=== PATIENT | female | born 1975 | race Caucasian/White ===

== ENCOUNTER 2018-10-12 16:08 | Emergency (ER) | payer OTHER, SELFPAY ==
[2018-10-12 16:15] VITALS: BP 155/96; PULSE 89; RESP 14; TEMP 36.8; O2SAT 98
--- NOTE | 2018-10-12 16:36 | W.ED.GENAD ---
Discharge Plan Disposition Patient Disposition: HOME Condition: Fair Discharge Details Chief Complaint: RespSymp Clinical Impression: Atypical chest pain, Breath shortness Primary Care Provider: Omar Richards ED Provider: Niki Rodriguez Home Meds and New Rx's Prescriptions: Continued metformin 500 mg Tablet 500 mg PO BID RF: 0 folic acid 400 mcg Tablet 0.4 mg PO DAILY RF: 0 acetaminophen [Acetaminophen Extra Strength] 500 mg Tablet 500 mg PO BID RF: 0 pantoprazole 20 mg Tablet,Delayed Release (Dr/Ec) 20 mg PO BID RF: 0 levothyroxine 75 mcg Tablet 75 mcg PO DAILY RF: 0 triamcinolone acetonide 0.025 % Cream 1 applic TOPICAL BID RF: 0 Refresh Tears 0.5 % Drops 1 drp OPHTHALMIC (EYE) 4-6XD PRNRF: 0 docusate sodium 100 mg Capsule 200 mg PO DAILY RF: 0 simethicone 125 mg Tablet,Chewable 125 mg PO BID-QID PRNRF: 0 naproxen 500 mg Tablet 500 mg PO BID RF: 0 desipramine 10 mg Tablet 10 mg PO QHS RF: 0 Discharge Instructions Instructions: Chest Pain (ED), Dyspnea (ED) Additional Instructions: Continue to encourage hydration. Stop using Thrive products, cut back on caffeine intake. Contact your primary care tomorrow to schedule follow up for this week. You will need to have heart monitor placed tomorrow, please call the respiratory department tomorrow morning to schedule time to have this put on [phone] If you develop any new/worsening symptoms please seek care urgently once again. Stand Alone Forms: Work Release Referrals: Omar Richards [Primary Care Provider] - Discharge Data Discharge Date/Time-TO BE ENTERED AT DEPARTURE: 10/12/18 20:05 Medical Decision Making Patient is a 42 year old female, accompanied by and child, presenting today with c/c of chest discomfort. Reports that she has been having chest discomfort constantly, that she describes as pressure, for the past week. No exacerbating factors, reports discomfort is constant. Does not radiate. Tried Simethicone and carbinated beverages both of which helped as she thought this was GI mediated. She reports that yesterday she noted the first episode of pain when ambulating with her daughter. Had similar episode while at rest today. Denies back pain. No nausea/vomiting. Diminished appetite but she associates this with her Thrive diet which is a highly caffinated diet with patch and pills. History of anxiety and PTSD. Has had anxiety attacks historically with associated CP. States that she has associated SOB when this occurs. SOB is while at rest typicaly but has been noted to be with exertion over the past 2 days. On exam, patient appears anxious. She has normal cardiac and respiratory exam. No calf tenderness or LE edema. Concidered ACS, she has a famililal history of early ACS with [facility] having MT at 55. She has no history of smoking, does not drink ETOH regularly. No hormone use. IS overweight and currently using a highly caffinated diet. Concidered PE but patient is PERC negative, VS without tachycardia or hypoxia. Also concidered respiratory cause. Will obtain EKG, CXR and laboratory evaluation. EKG reviewed by Dr. Fiore with no acute hemorrhage is noted. Patient is in normal sinus rhythm with a rate of 79 Repeat EKG was obtained when the patient began noting increased symptoms while at rest. This was reviewed by Dr. Fiore as well. No acute abnormality, patient remains in normal sinus rhythm with no abnormalities. Patient described feeling skips during this time. CXR reviewed by radiologist: FINDINGS: Lungs: Unremarkable. No consolidation. Pleural space: Unremarkable. No pleural effusion. No pneumothorax. Heart/Mediastinum: Unremarkable. No cardiomegaly. Bones/joints: Unremarkable. IMPRESSION: No acute findings. Labs reviewed, glucose elevated. Troponin <0.02, no electrolyte abnormalities. Discussed these findings with the patient. She had yet another episode of her heart racing and a third EKG whas obtained while patient was symptomatic. This was also reviewed by Dr. Fiore with no change noted. Discussed with the patient that she may benefit from Holter monitor, she will discuss this with her primary care further. At this point, I advised that this is likely associated with her new diet which give the patient a constant flow of caffeine through pills and pathces. Her symptoms began shortly after beginning the diet. I did research this but was unable to find any clinical studies around the diet. Anedotally however, many peope described palpitations, increased anxiety. This with the patients increased social stressors may be the source of her symptoms as she has had anxiety in the past with chest discomfort manifestations. She reports that typically her symptoms are not this long lived. Advised patient close f/u with her PCP. She will stop her diet. Encouraged rest and anxiolytic techniques. Encouraged hdyration. Discussed new/worseniging symptoms in depth and when to seek care urgently once again. All of her questions and concerns were addressed, she is in agreement with this plan. HPI General Mode of arrival: ambulatory. Date/Time Provider Initiated Documentation: 10/12/18 16:10. Limitations to Documentation: no limitations. Information obtained by: patient, family and RN notes reviewed. History of Present Illness 42 year old F presents to the emergency department with the chief complaint of shortness of breath, described as moderate, with intensity rated at 6. Quality is described as other (pressure), and is localized to the chest. Patient reports no radiation. Patient started experiencing this day(s) and it has been constant. No relieving factors improve symptom(s), Movement worsens symptoms . Patient notes chest pain and shortness of breath; denies cough, diaphoresis, fever/chills, loss of appetite, nausea/vomiting, rash, syncope and weakness. Patient did receive the following treatments prior to arrival, none Related Data Home Medications Medication Instructions Recorded Confirmed Refresh Tears 1 drp OPHTHALMIC (EYE) 4-6XD PRN 10/12/18 10/15/18 acetaminophen [Acetaminophen Extra 500 mg PO BID 10/12/18 10/15/18 Strength] desipramine 10 mg PO QHS 10/12/18 10/15/18 docusate sodium 200 mg PO DAILY 10/12/18 10/15/18 folic acid 0.4 mg PO DAILY 10/12/18 10/15/18 levothyroxine 75 mcg PO DAILY 10/12/18 10/15/18 metformin 500 mg PO BID 10/12/18 10/15/18 naproxen 500 mg PO BID 10/12/18 10/15/18 pantoprazole 20 mg PO BID 10/12/18 10/15/18 simethicone 125 mg PO BID-QID PRN 10/12/18 10/15/18 triamcinolone acetonide 1 applic TOPICAL BID 10/12/18 10/15/18 Allergies Allergy/AdvReac Type Severity Reaction Status Date / Time sumatriptan [From Imitrex] AdvReac Unverified 10/15/18 16:18 metals Allergy Uncoded 10/15/18 16:22 onions Allergy Uncoded 10/15/18 16:22 General Stated Complaint: RespSymp ARCADIO: 3 Review of Systems Constitutional Reports as per HPI, Denies chills, Denies fever(s), Denies headache(s), Denies lethargy and Denies poor appetite Eyes Denies change in vision ENT Denies dizziness and Denies headache(s) Cardiovascular Reports as per HPI, Reports chest pain (pressure), Reports chest pain at rest, Reports chest pain with activity, Denies syncope, Denies leg edema, Denies lightheadedness, Denies radiating jaw, neck or arm pain, Reports palpitations, Reports dyspnea (at rest) and Reports dyspnea on exertion Respiratory Reports as per HPI, Denies chest congestion, Denies cough, Denies pain on inspiration, Denies pain with cough, Reports dyspnea (at rest), Reports dyspnea on exertion and Denies wheezing Gastrointestinal Reports as per HPI, Denies abdominal pain, Denies diarrhea, Denies nausea and Denies vomiting Musculoskeletal Reports as per HPI, Denies back pain, Denies muscle weakness and Denies numbness Integumentary/Breasts Reports as per HPI and Denies rash Neurologic Reports as per HPI, Denies dizziness, Denies syncope, Denies headache(s) and Denies numbness Endocrine Reports palpitations Allergic/Immunologic Denies wheezing [facility] Social History Smoking/Tobacco Use Status: Never Alcohol Intake: current Alcohol Intake frequency: holidays/special occasions only Drug use: Never Substance use type: does not use Do you feel safe at home: Yes Do you feel safe in your relationship?: Yes Exam Const General: cooperative, healthy appearing, comfortable, no acute distress, well developed and anxious Nutritional Appearance: well nourished and overweight Orientation: alert, awake and oriented x3 HENMT Head: normal to inspection Ears: hearing grossly normal bilaterally Mouth: moist mucous membranes Chest Chest: normal inspection of the chest, normal palpation of entire chest wall and no crepitus Resp Effort & Inspection: normal respiratory effort, able to speak in complete sentences and no respiratory distress Auscultation: clear to auscultation bilaterally, no rales, no rhonchi and no wheezes Cardio Rate: regular rate Rhythm: regular rhythm Heart Sounds: S1 normal and S2 normal GI Inspection: normal to inspection, no edema and non-distended Palpation: soft, no hepatosplenomegaly, not firm, no guarding, not rigid and nontender Auscultation: normal bowel sounds Back/Spine/Pelvis Back: no CVA tenderness Thoracic/Lumbar Spine: thoracic and lumbar spine normal to inspection Skin General skin exam: no rashes or lesions noted Trauma: no lacerations or abrasions Neuro General: alert, awake and oriented x3 Cognition: normal cognition Speech: speech normal Gait: normal gait Extrem General: normal to inspection, normal capillary refill, no pedal edema, no calf tenderness and normal gait Psych Appearance: grossly normal and well kempt Mental Status: mental status grossly normal Speech and Movement: speech and movement normal Course Vital Signs Temperature 36.8 C 10/12/18 16:15 Pulse 89 10/12/18 16:15 Respiratory Rate 14 10/12/18 16:15 Blood Pressure 155/96 H 10/12/18 16:15 Pulse Oximetry 98 10/12/18 16:15 Temperature 36.8 C 10/12/18 16:15 Temperature Source Temporal Artery Scan 10/12/18 16:15 Pulse 89 10/12/18 16:15 Respiratory Rate 14 10/12/18 16:15 Respiratory Effort Non-Labored 10/12/18 16:19 Blood Pressure 155/96 H 10/12/18 16:15 Blood Pressure Position Sitting 10/12/18 16:15 Pulse Oximetry 98 10/12/18 16:15 Oxygen Delivery Method Room Air 10/12/18 16:15 Oxygen Flow Rate 0 10/12/18 16:15 Pain Level 6 10/12/18 16:15
[2018-10-12 16:52] LABS: Bilirubin Negative (Negative); Blood Trace-lysed (Negative); Clarity Clear; Glucose Negative (Negative); Ketones Negative (Negative); Leukocyte Esterase Negative (Negative); Nitrite Negative (Negative); Specific Gravity 1.015 (1.005-1.025); Urobilinogen 0.2 EU/dL (Up TO 0.2); pH 5.5 (5-8)
--- NOTE | 2018-10-12 16:52 | DI.RAD_ITS ---
SYMPTOM/DIAGNOSIS: SOB PA AND LATERAL CHEST: The heart is normal in size. The lungs are clear. The mediastinal structures and pleura appear intact. CONCLUSION: Normal chest.
[2018-10-12 17:02] LABS: Bacteria Rare HPF (Negative); C & S Indicated? No; Casts Negative LPF (Negative); Crystals Negative HPF (Negative); Epithelial Cells Negative HPF (Negative); Mucus Negative (Negative); Other Cells Negative (Negative); RBC 0-2 (0-2); WBC Negative HPF (0-5)
[2018-10-12 17:08] LABS: Abs Immature Grans 0.02 k/cumm (0.0-0.09); Absolute Basophil Count 0.05 k/cumm (0.0-0.2); Absolute Eosinophil Count 0.18 k/cumm (0.0-0.7); Absolute Lymphocyte Count 2.63 k/cumm (1.2-3.4); Absolute Monocyte Count 0.71 k/cumm (0.11-0.7); Absolute Neutrophil Count 5.04 k/cumm (1.2-6.7); Basophils % 0.6; Eosinophils % 2.1; HCT 40.6 % (36.0-46.0); HGB 13.7 g/dL (12.0-15.5); Immature Grans % 0.2; Lymphocytes % 30.5; Mean Corp. HGB Concentration 33.7 g/dL (32.0-36.0); Mean Corpuscular Hemoglobin 27.8 pg (27.0-33.0); Mean Corpuscular Volume 82.4 fL (80-95); Monocytes % 8.2; Neutrophils % 58.4; Platelet Count 406 x1000/uL (130-400); RBC 4.93 m/cumm (4.00-5.20); RBC Distribution Width 13.8 % (11.7-14.6); White Blood Cell Count 8.63 k/cumm (4.4-10.8)
[2018-10-12 17:27] LABS: ALT 43 U/L (12-78); AST 28 U/L (15-37); Albumin 3.9 g/dL (3.4-5.0); Alkaline Phosphatase 101 U/L (46-116); Anion Gap 9.5 mmol/L (3-11); BUN 11 mg/dL (7-18); Bilirubin, Total 0.3 mg/dL (0.2-1.0); CO2 26.5 mmol/L (21.0-32.0); CREATININE 0.84 mg/dL (0.55-1.02); Calcium 9.3 mg/dL (8.5-10.1); Chloride 101 mmol/L (98-107); Glucose 142 mg/dL (70-100); Magnesium 1.9 mg/dL (1.8-2.4); Sodium 137 mmol/L (136-145); Total Protein 8.4 g/dL (6.4-8.2)
--- NOTE | 2018-10-12 17:37 | DI.VRAD_ITS ---
EXAM: XR Chest, 2 Views EXAM DATE/TIME: 10/12/2018 4:53 PM CLINICAL HISTORY: 42 years old, female; Signs and symptoms; Shortness of breath TECHNIQUE: Imaging protocol: XR of the chest, 2 views. COMPARISON: No relevant prior studies available. FINDINGS: Lungs: Unremarkable. No consolidation. Pleural space: Unremarkable. No pleural effusion. No pneumothorax. Heart/Mediastinum: Unremarkable. No cardiomegaly. Bones/joints: Unremarkable. IMPRESSION: No acute findings. Dictated and Authenticated by: Omar Shelton MD. Ordering:WESTON Prince MD
[2018-10-12 17:42] LABS: Troponin I < 0.02 ng/mL (0.00-0.06)
[2018-10-12 17:43] VITALS: PULSE 79; RESP 26; O2SAT 97
[2018-10-12 17:46] VITALS: BP 125/91; PULSE 75; PULSE 82; O2SAT 98
[2018-10-12 17:50] VITALS: O2SAT 97
[2018-10-12 18:00] VITALS: PULSE 71; O2SAT 96
[2018-10-12] MEDS: Acetaminophen 500 MG TAB 1000 MG PO (19:40)
[2018-10-12 20:01] VITALS: BP 131/88; PULSE 83; RESP 18; TEMP 36.8; O2SAT 98
== END 2018-10-12 20:05 | disposition home or self-care (01) ==
PROVIDERS: Emergency Provider Physician Assistant; PCP Internal Medicine
DX: R07.89 Other chest pain (principal); R06.02 Shortness of breath
CPT/HCPCS: 36415; 80053; 81025; 93005; 99285; 71046; 81003; 81015; 83735; 84484; 85025; 93010

== ENCOUNTER 2018-10-15 16:03 | Emergency (ER) | payer OTHER, SELFPAY ==
[2018-10-15 16:15] VITALS: BP 128/77; PULSE 97; RESP 16; TEMP 36.6; O2SAT 95
--- NOTE | 2018-10-15 16:52 | ED.GENADUL_ITS ---
Discharge Plan Disposition Patient Disposition: HOME Condition: Stable Discharge Details Chief Complaint: SOB Clinical Impression: Exertional shortness of breath Primary Care Provider: Omar Richards ED Provider: Lizandro Bishop Home Meds and New Rx's Prescriptions: Continued metformin 500 mg Tablet 500 mg PO BID RF: 0 folic acid 400 mcg Tablet 0.4 mg PO DAILY RF: 0 acetaminophen [Acetaminophen Extra Strength] 500 mg Tablet 500 mg PO BID RF: 0 pantoprazole 20 mg Tablet,Delayed Release (Dr/Ec) 20 mg PO BID RF: 0 levothyroxine 75 mcg Tablet 75 mcg PO DAILY RF: 0 triamcinolone acetonide 0.025 % Cream 1 applic TOPICAL BID RF: 0 Refresh Tears 0.5 % Drops 1 drp OPHTHALMIC (EYE) 4-6XD PRNRF: 0 docusate sodium 100 mg Capsule 200 mg PO DAILY RF: 0 simethicone 125 mg Tablet,Chewable 125 mg PO BID-QID PRNRF: 0 naproxen 500 mg Tablet 500 mg PO BID RF: 0 desipramine 10 mg Tablet 10 mg PO QHS RF: 0 Discharge Instructions Instructions: Dyspnea (ED) Additional Instructions: Continue to take your regular medication as prescribed and follow-up with your primary care provider as arranged. Feel free to return to the emergency department for any new or significant worsening of symptoms, change in symptoms or further concerns he may have. Referrals: Omar Richards [Primary Care Provider] - (As needed for reassessment or as previously arranged) Discharge Data Discharge Date/Time-TO BE ENTERED AT DEPARTURE: 10/15/18 18:50 Medical Decision Making Patient presenting the emergency department for chief complaint of dyspnea on exertion. She states that recently while she is been at work she has noted some shortness of breath when going up and down stairs and with even slight activity. Patient was seen here couple days ago with valuation and plan to discharge home to follow-up with primary care provider. Patient followed up with primary care provider today and there was concern for possible PE so patient sent to the emergency department for further work-up. Patient states some substernal chest discomfort that is not changed, dyspnea on exertion, no pedal edema. Patient does have history of PTSD, anxiety, hypothyroidism and migraine headaches. Patient is PERC negative but given complaint I do feel that laboratory work-up is warranted. Physical exam shows no tachycardia, no respiratory distress, patient speaking in full sentences with clear lung sounds, and unremarkable examination overall. Review EKG with attending physician Dr. Noel shows normal sinus rhythm, rate of 81, no ST abnormalities, otherwise nondiagnostic. Review of labs shows negative d-dimer, unremarkable CBC and CMP, negative troponin, elevated TSH but appropriate T4. Discussed these findings with patient who again remained stable with no hypoxia no tachycardia. Patient was offered chest x-ray given that she had one at her last visit with no acute findings and patient stating no worsening symptoms she deferred this at this time which I do feel is reasonable. Patient was encouraged to need to follow the plan established by her primary care provider for further work-up and evaluation and very close return precautions were discussed. After discussion of diagnosis and plan of care patient has no further needs, questions, or concerns and states clear understanding to return to the emergency department for any worsening symptoms. HPI General Mode of arrival: ambulatory . Date/Time Provider Initiated Documentation: 10/15/18 16:03 . Limitations to Documentation: no limitations . Information obtained by: patient and RN notes reviewed . History of Present Illness 42 year old F presents to the emergency department with the chief complaint of Shortness of breath, described as moderate, with intensity rated at 7. Quality is described as aching and other (pressure), and is localized to the chest. Patient started experiencing this week(s) (1) and it has been constant. No relieving factors improve symptom(s), Other factors that worsen symptoms (activity) . Patient notes no other symptoms.. Patient did receive the following treatments prior to arrival, none Related Data Home Medications Medication Instructions Recorded Confirmed Refresh Tears 1 drp OPHTHALMIC (EYE) 4-6XD PRN 10/12/18 10/15/18 acetaminophen [Acetaminophen Extra 500 mg PO BID 10/12/18 10/15/18 Strength] desipramine 10 mg PO QHS 10/12/18 10/15/18 docusate sodium 200 mg PO DAILY 10/12/18 10/15/18 folic acid 0.4 mg PO DAILY 10/12/18 10/15/18 levothyroxine 75 mcg PO DAILY 10/12/18 10/15/18 metformin 500 mg PO BID 10/12/18 10/15/18 naproxen 500 mg PO BID 10/12/18 10/15/18 pantoprazole 20 mg PO BID 10/12/18 10/15/18 simethicone 125 mg PO BID-QID PRN 10/12/18 10/15/18 triamcinolone acetonide 1 applic TOPICAL BID 10/12/18 10/15/18 Allergies Allergy/AdvReac Type Severity Reaction Status Date / Time sumatriptan [From Imitrex] AdvReac Unverified 10/15/18 16:18 metals Allergy Uncoded 10/15/18 16:22 onions Allergy Uncoded 10/15/18 16:22 General Stated Complaint: SOB ARCADIO: 3 Review of Systems Constitutional Denies chills, Denies fever(s) and Denies malaise Cardiovascular Reports chest pain, Denies chest pain with activity, Denies irregular heart rhythm, Denies leg edema, Denies palpitations, Reports dyspnea and Reports dyspnea on exertion Respiratory Denies cough, Denies hemoptysis, Reports dyspnea, Reports dyspnea on exertion and Denies wheezing Gastrointestinal Denies abdominal pain Psychiatric Reports anxiety Endocrine Denies palpitations Allergic/Immunologic Denies wheezing PFSH Social History Smoking/Tobacco Use Status: Never Alcohol Intake: current Alcohol Intake frequency: holidays/special occasions only Drug use: Never Substance use type: does not use Do you feel safe at home: Yes Do you feel safe in your relationship?: Yes Exam Const General: cooperative, healthy appearing, comfortable, no acute distress, not diaphoretic and not ill appearing Nutritional Appearance: average body habitus Orientation: alert, awake and oriented x3 Limitations: mental status not altered Neck Neck: normal visual inspection, full ROM, trachea midline, supple and no anterior neck swelling Thyroid: thyroid normal Carotids: normal carotid upstroke and no bruits Chest Chest: normal inspection of the chest Resp Effort & Inspection: normal respiratory effort and able to speak in complete sentences Auscultation: clear to auscultation bilaterally Cardio Jugular venous pressure: no JVD Palpation: normal PMI Rate: regular rate Rhythm: regular rhythm Heart Sounds: S1 normal, S2 normal, no click, no gallops, no murmurs and no rubs Bruits: no abdominal aortic bruits and no carotid bruits Skin General skin exam: no rashes or lesions noted Course Vital Signs Temperature 36.6 C 10/15/18 16:15 Pulse 97 H 10/15/18 16:15 Respiratory Rate 16 10/15/18 16:15 Blood Pressure 128/77 10/15/18 16:15 Pulse Oximetry 95 10/15/18 16:15 Temperature 36.6 C 10/15/18 16:15 Temperature Source Skin 10/15/18 16:15 Pulse 97 H 10/15/18 16:15 Respiratory Rate 16 10/15/18 16:15 Respiratory Effort 10/15/18 16:24 Respiratory Depth Normal 10/15/18 16:24 Respiratory Pattern Normal 10/15/18 16:24 Blood Pressure 128/77 10/15/18 16:15 Blood Pressure Position Sitting 10/15/18 16:15 Pulse Oximetry 95 10/15/18 16:15 Oxygen Delivery Method Room Air 10/15/18 16:15 Oxygen Flow Rate 0 10/15/18 16:15 Pain Level 7 10/15/18 16:24
[2018-10-15 17:18] LABS: Abs Immature Grans 0.03 k/cumm (0.0-0.09); Absolute Basophil Count 0.05 k/cumm (0.0-0.2); Absolute Eosinophil Count 0.21 k/cumm (0.0-0.7); Absolute Lymphocyte Count 2.08 k/cumm (1.2-3.4); Absolute Monocyte Count 0.61 k/cumm (0.11-0.7); Basophils % 0.6; Eosinophils % 2.5; HCT 39.2 % (36.0-46.0); HGB 13.3 g/dL (12.0-15.5); Immature Grans % 0.4; Lymphocytes % 24.5; Mean Corp. HGB Concentration 33.9 g/dL (32.0-36.0); Mean Corpuscular Hemoglobin 28.2 pg (27.0-33.0); Mean Corpuscular Volume 83.1 fL (80-95); Mean Platelet Volume 8.9 fL (8.0-11.0); Monocytes % 7.2; Neutrophils % 64.8; Platelet Count 396 x1000/uL (130-400); RBC 4.72 m/cumm (4.00-5.20); RBC Distribution Width 13.6 % (11.7-14.6); White Blood Cell Count 8.48 k/cumm (4.4-10.8)
[2018-10-15 17:43] LABS: ALT 53 U/L (12-78); AST 27 U/L (15-37); Albumin 2.7 g/dL (3.4-5.0); Alkaline Phosphatase 103 U/L (46-116); Anion Gap 9.7 mmol/L (3-11); BUN 11 mg/dL (7-18); Bilirubin, Total 0.2 mg/dL (0.2-1.0); CO2 27.3 mmol/L (21.0-32.0); CREATININE 0.81 mg/dL (0.55-1.02); Calcium 8.8 mg/dL (8.5-10.1); Chloride 102 mmol/L (98-107); Glucose 139 mg/dL (70-100); Magnesium 1.9 mg/dL (1.8-2.4); NT-proBNP 33 pg/mL; Potassium 3.7 mmol/L (3.5-5.1); Sodium 139 mmol/L (136-145); Total Protein 8.2 g/dL (6.4-8.2)
[2018-10-15 17:46] LABS: Troponin I < 0.02 ng/mL (0.00-0.06)
[2018-10-15 17:50] LABS: D-Dimer 275 ng/mlFEU (<500)
[2018-10-15] MEDS: Acetaminophen 500 MG TAB (17:57)
[2018-10-15 18:09] LABS: TSH (W/Ref FT4) 6.93 uIU/mL (0.358-3.74)
[2018-10-15 18:33] LABS: FREE T4 0.79 ng/dL (0.76-1.46)
[2018-10-15 18:49] VITALS: BP 136/78; PULSE 79; RESP 16; TEMP 36.6; O2SAT 100
== END 2018-10-15 18:50 | disposition home or self-care (01) ==
PROVIDERS: Emergency Provider Nurse Practitioner Family; PCP Internal Medicine
DX: R06.09 Other forms of dyspnea (principal); R07.89 Other chest pain; F41.9 Anxiety disorder, unspecified
CPT/HCPCS: 36415; 80053; 93005; 99284; 83735; 83880; 84439; 84443; 84484; 85025; 85379; 93010

== ENCOUNTER 2020-05-31 04:51 | Outpatient (CLI) | payer OTHER, SELFPAY ==
[2020-06-02 16:37] LABS: COVID-19 RT-PCR Result NEGATIVE (Negative)
== END 2020-05-31 05:11 ==
PROVIDERS: PCP Internal Medicine; Visit Provider Internal Medicine
DX: Z20.828 Contact with and (suspected) exposure to other viral communicable diseases (principal)
CPT/HCPCS: U0003

== ENCOUNTER 2021-04-16 19:07 | Emergency (ER) | payer OTHER, SELFPAY ==
[2021-04-16 19:29] VITALS: BP 130/82; PULSE 82; RESP 16; TEMP 37.2; O2SAT 97
--- NOTE | 2021-04-16 19:39 | W.ED.GENAD ---
Discharge Plan Disposition Patient Disposition: HOME Condition: Stable Discharge Details Clinical Impression: Migraine Primary Care Provider: Omar Richards ED Provider: Uday Fiore Home Meds and New Rx's Prescriptions: Continued metformin 500 mg Tablet 1,000 mg PO BID RF: 0 folic acid 400 mcg Tablet 0.4 mg PO DAILY RF: 0 pantoprazole 20 mg Tablet,Delayed Release (Dr/Ec) 20 mg PO BID RF: 0 levothyroxine 75 mcg Tablet 100 mcg PO DAILY RF: 0 triamcinolone acetonide 0.025 % Cream 1 applic TOPICAL BID RF: 0 carboxymethylcellulose sodium [Refresh Tears] 0.5 % Drops 1 drp OPHTHALMIC (EYE) 4-6XD PRNRF: 0 docusate sodium 100 mg Capsule 200 mg PO DAILY RF: 0 simethicone 125 mg Tablet,Chewable 125 mg PO BID-QID PRNRF: 0 citalopram 40 mg Tablet 40 mg PO DAILY RF: 0 semaglutide 0.25 mg or 0.5 mg(2 mg/1.5 mL) Pen Injector 0.25 mg SUBCUT QWEEK RF: 0 Discharge Instructions Instructions: General Headache (ED) Additional Instructions: Home to rest this evening. Small, frequent sips of fluids so that you maintain good hydration. Routine care with the [facility]. Return for any acute concerns. Discharge Data Discharge Date/Time-TO BE ENTERED AT DEPARTURE: 04/16/21 21:58 Medical Decision Making <Ruthie Noel DO - Last Filed: 04/17/21 08:38> 44-year-old female with a history of diabetes and migraines presents for migraine headache since last night. Vitals within normal limits. Patient sitting in a dark room but does not appear significantly uncomfortable or toxic. No focal deficits on exam. Discussed with patient that she had a [facility] and will attempt to obtain this report. Patient states she does not want any additional work-up into this including imaging and states she would just like medication for migraine. Her history and presentation does not appear consistent with meningitis, subarachnoid hemorrhage or CVA. Will place an IV, bolus IV fluids, IV Toradol, Compazine, Benadryl, Decadron and reassess. Case endorsed to Dr. iFore to follow-up on patient response to medication and [facility] report [facility] the [facility] if able to obtain. Medical Records Medical records reviewed: Yes I reviewed the patient's medical records. <Uday Fiore MD - Last Filed: 04/16/21 21:33> Received signout from Dr. Noel. Please see her note regarding details of this presentation, exam, plan of care. I did receive and review records from the [facility] noting approximately 5 mm focus within the left subcortical frontal lobe. Stable versus comparison per report. Also note of 3 additional punctate foci within the bilateral frontal lobe of doubtful clinical significance. Following medications, patient improving. She is stable for outpatient management. HPI <Ruthie Noel DO - Last Filed: 04/17/21 08:38> General Mode of arrival: ambulatory. Date/Time Provider Initiated Documentation: 04/16/21 19:09. Limitations to Documentation: no limitations. Information obtained by: patient. HPI Narrative: Patient is a 45-year-old female with a history of migraines and diabetes presents for migraine headache since last night. She states she has had a daily headache since the age of 6 but comes and goes in intensity. He states these particular headache have been worse over the past week. He states she is followed by her doctor and neurology at the [facility]. She states her primary doctor ordered an MRI for her worsening headaches recently and states she was told there were 4 areas of focus on her brain but she states she has not yet followed up with him or her neurologist to discuss these results. She describes her headaches as intermittent, squeezing, wrapped around her head and associated with nausea, sensitivity to light. She states this is not the worst headache of her life. She states she has not taken any medication for these headaches. She states she cannot take Imitrex for her migraines as it causes whiplash . She denies any fever, cough, sore throat. Related Data Home Medications Medication Instructions Recorded Confirmed carboxymethylcellulose sodium 1 drp OPHTHALMIC (EYE) 4-6XD PRN 10/12/18 04/16/21 [Refresh Tears] docusate sodium 200 mg PO DAILY 10/12/18 04/16/21 folic acid 0.4 mg PO DAILY 10/12/18 04/16/21 levothyroxine 100 mcg PO DAILY 10/12/18 04/16/21 metformin 1,000 mg PO BID 10/12/18 04/16/21 pantoprazole 20 mg PO BID 10/12/18 04/16/21 simethicone 125 mg PO BID-QID PRN 10/12/18 04/16/21 triamcinolone acetonide 1 applic TOPICAL BID 10/12/18 04/16/21 citalopram 40 mg PO DAILY 04/16/21 04/16/21 semaglutide 0.25 mg SUBCUT QWEEK 04/16/21 04/16/21 Allergies Allergy/AdvReac Type Severity Reaction Status Date / Time sumatriptan [From Imitrex] AdvReac Unverified 04/16/21 19:32 metals Allergy Uncoded 04/16/21 19:32 onions Allergy Uncoded 04/16/21 19:32 General Stated Complaint: Headache ARCADIO: 3 Review of Systems <Ruthie Noel DO - Last Filed: 04/17/21 08:38> All systems reviewed & are unremarkable except as noted in HPI and below Constitutional Constitutional: Reports as per HPI, Denies chills, Denies fever(s) and Reports headache(s) Eyes Eyes: Denies blurry vision ENT Ears, Nose, Mouth, and Throat: Denies dizziness, Reports headache(s), Denies sore throat and Denies throat swelling Cardiovascular Cardiovascular: Denies chest pain and Denies dyspnea Respiratory Respiratory: Denies cough and Denies dyspnea Gastrointestinal Gastrointestinal: Denies abdominal pain, Denies diarrhea, Reports nausea and Denies vomiting Genitourinary Genitourinary: Denies hematuria and Denies dysuria Musculoskeletal Musculoskeletal: Denies back pain and Denies numbness Integumentary/Breasts Skin/Breast: Denies lesions and Denies rash Neurologic Neurologic: Denies dizziness, Reports headache(s), Denies localized weakness and Denies numbness Allergic/Immunologic Allergic/Immunologic: Denies throat swelling PFSH <Ruthie Noel DO - Last Filed: 04/17/21 08:38> Medical History (Updated 04/16/21 @ 20:15 by Ruthie Noel DO) Diabetes Migraine Surgical History (Updated 04/16/21 @ 20:10 by Ruthie Noel DO) H/O section History of hernia repair Hx of cholecystectomy Social History Smoking/Tobacco Use Status: Never Smoking risk assessment performed?: Yes Alcohol Intake: current Alcohol Intake frequency: holidays/special occasions only Drug use: Never Substance use type: does not use Do you feel safe at home: Yes Do you feel safe in your relationship?: Yes Exam <Ruthie Noel DO - Last Filed: 04/17/21 08:38> Const General: cooperative, healthy appearing and no acute distress Nutritional Appearance: obese morbidly obese [facility] Head: normal to inspection Ears: hearing grossly normal bilaterally and external ears normal General nose exam: external nose normal Face and sinus: normal facial exam Mouth: oral mucosae normal Eyes General: appearance normal, both eyes and all related structures Pupils: PERRL EOM: EOM intact bilaterally Neck Neck: normal visual inspection and No submandibular swelling Lymphatic: no lymphadenopathy noted Chest Chest: normal inspection of the chest and no tenderness Resp Effort & Inspection: normal respiratory effort and able to speak in complete sentences Auscultation: clear to auscultation bilaterally Cardio Rate: regular rate Rhythm: regular rhythm GI Inspection: normal to inspection and obesity Palpation: soft, not firm, not rigid and nontender Auscultation: normal bowel sounds Skin General skin exam: no rashes or lesions noted Neuro General: patient alert, patient awake, patient oriented x3, moves all extremities, no meningeal signs and no focal motor deficits Cognition: normal cognition Speech: speech normal Motor: muscle tone normal throughout and strength 5/5 throughout Sensory Exam: no sensory deficits noted Extrem General: normal to inspection, full ROM, capillary refill normal, no calf tenderness bilaterally and no edema Psych Appearance: grossly normal Mental Status: mental status grossly normal Speech and Movement: speech and movement normal Affect: normal affect Course <Ruthie Noel DO - Last Filed: 04/17/21 08:38> Vital Signs Vital signs: Vital Signs Temperature 98.9 F 04/16/21 19:29 Pulse 82 04/16/21 19:29 Respiratory Rate 16 04/16/21 19:29 Blood Pressure 130/82 04/16/21 19:29 Pulse Oximetry 97 04/16/21 19:29 Temperature 98.9 F 04/16/21 19:29 Temperature Source Temporal Artery Scan 04/16/21 19:29 Pulse 82 04/16/21 19:29 Respiratory Rate 16 04/16/21 19:29 Respiratory Effort Non-Labored 04/16/21 19:33 Blood Pressure 130/82 04/16/21 19:29 Blood Pressure Position Sitting 04/16/21 19:29 Pulse Oximetry 97 04/16/21 19:29 Oxygen Delivery Method Room Air 04/16/21 19:29 Oxygen Flow Rate 0 04/16/21 19:29 Pain Level 10 04/16/21 19:29 Sign Out <Ruthie Noel DO - Last Filed: 04/17/21 08:38> Sign Out Data: Sign Out Comment: Follow-up on response to medications for migraine and final disposition. Follow-up if able to obtain recent [facility]. Last updated by Ruthie Noel DO at 04/16/21 20:15
[2021-04-16] MEDS: Normal Saline 1,000 ML 1000 ML IV (20:33)
[2021-04-16] MEDS: diphenhydrAMINE 50 MG/ML VIAL 25 MG IVP (20:34)
[2021-04-16] MEDS: Dexamethasone 10 MG/ML VIAL IVP (20:36)
[2021-04-16] MEDS: Ketorolac 30 MG/ML VIAL IVP (20:39)
[2021-04-16] MEDS: Prochlorperazine 10 MG/2 ML VIAL IVP (20:42)
[2021-04-16 21:37] VITALS: BP 137/85; PULSE 90; RESP 16; O2SAT 96
== END 2021-04-16 21:58 | disposition home or self-care (01) ==
PROVIDERS: Emergency Provider Emergency Medicine; PCP Internal Medicine
DX: G43.909 Migraine, unspecified, not intractable, without status migrainosus (principal)
CPT/HCPCS: 81025; 96361; 96374; 96375; 99284; J0780; J1100; J1200; J1885

== ENCOUNTER → 2022-06-04 02:05 | Outpatient (CLI) | payer OTHER, SELFPAY ==
--- NOTE | 2022-06-04 | DI.RAD_ITS ---
Exam(s) XR KNEE RT 4V AP,LAT,HERNÁN,PAT EXAM: XR KNEE RT 4V AP,LAT,HERNÁN,PAT CLINICAL HISTORY: RT KNEE PAIN, M25.561, [id number]. TECHNIQUE: 2D digital imaging was performed of the right knee. Four views obtained. Merchant, AP, la teral and PA tunnel views were obtained. COMPARISON: None. FINDINGS: BONES: No acute fracture is present. No bony destructive lesion is seen. JOINTS: The knee is normally aligned. No joint effusion is seen. SOFT TISSUE: Normal. IMPRESSION: Unremarkable radiographs of the right knee. DATA REPOSITORY: RADIATION DOSE DELIVERED:
== END ==
PROVIDERS: PCP Internal Medicine; Visit Provider Obstetrics & Gynecology
DX: M25.561 Pain in right knee (principal)
CPT/HCPCS: 73564

== ENCOUNTER 2023-08-07 12:05 | Emergency (ER) | payer OTHER, SELFPAY ==
[2023-08-07] VITALS (11 sets, daily range): BP systolic 103–122; BP diastolic 50–66; PULSE 60–72; RESP 15–21; TEMP 36.6–36.7; O2SAT 92–97
--- NOTE | 2023-08-07 12:00 | RT.EKG_ITS ---
APPROVED REPORT Exam: Resting ECG Reason for Exam: palpatations Patient Location: E HR:67 bpm ECG Measurements Heart Rate 67 AXIS NE 178 P 29 QRSd 85 QRS 36 QT 418 T 12 QTc 441 Conclusion Sinus rhythm...normal P axis, V-rate 60- 99
[2023-08-07 12:33] LABS: Abs Immature Grans 0.01 10^3/uL (0.0-0.06); Absolute Basophil Count 0.07 10^3/uL (0.0-0.2); Absolute Eosinophil Count 0.14 10^3/uL (0.0-0.7); Absolute Lymphocyte Count 2.24 10^3/uL (1.2-3.4); Absolute Monocyte Count 0.61 10^3/uL (0.1-0.8); Absolute Neutrophil Count 5.31 10^3/uL (1.2-6.7); Basophils % 0.8; Eosinophils % 1.7; HCT 37.1 % (36.0-46.0); HGB 12.8 g/dL (11.2-15.7); Immature Grans % 0.1; Lymphocytes % 26.7; MCH 28.2 pg (27.0-33.0); MCHC 34.5 % (32.0-36.0); MCV 82 fL (80-95); MPV 8.6 fL (8.0-11.0); Monocytes % 7.3; Neutrophils % 63.4; Platelet Count 409 10^3/uL (130-400); RBC 4.54 10^6/uL (3.93-5.22); RDW 13.6 % (11.7-14.6); RDW-SD 40.2 fL; WBC 8.38 10^3/uL (4.4-10.8)
--- NOTE | 2023-08-07 12:45 | DI.RAD_ITS ---
Exam(s) XR PORTABLE CHEST AP EXAM: XR PORTABLE CHEST AP CLINICAL HISTORY: cough TECHNIQUE: 2D digital imaging was performed. COMPARISON: CR XR CHEST 2V PA LATERAL from 10/12/2018 FINDINGS: LUNGS: Clear. No pleural abnormality seen. HEART: Normal size. AORTA: Normal diameter. BONES: Unremarkable for age. Soft tissues: Unremarkable. IMPRESSION: No acute findings. DATA REPOSITORY: RADIATION DOSE DELIVERED:
--- NOTE | 2023-08-07 12:47 | ED.GENADUL_ITS ---
HPI General Mode of arrival: ambulatory . Date/Time Provider Initiated Documentation: 08/07/23 12:05 . Limitations to Documentation: no limitations . Information obtained by: patient . History of Present Illness 47 year old F presents to the emergency department with the chief complaint of palpitations, described as moderate, Patient started experiencing this day(s) (2) and it has been intermittent. No relieving factors improve symptom(s), No exacerbating factors reported . Patient notes cough; denies chest pain and fever/chills. Patient did receive the following treatments prior to arrival, none Related Data Home Medications Medication Instructions Recorded Confirmed carboxymethylcellulose sodium 0.5 1 drp ophthalmic (eye) 4-6XD PRN 10/12/18 04/16/21 % eye drops (Refresh Tears) docusate sodium 100 mg capsule 200 mg PO DAILY 10/12/18 04/16/21 folic acid 400 mcg tablet 0.4 mg PO DAILY 10/12/18 04/16/21 levothyroxine 75 mcg tablet 100 mcg PO DAILY 10/12/18 04/16/21 metformin 500 mg tablet 1,000 mg PO BID 10/12/18 04/16/21 pantoprazole 20 mg tablet,delayed 20 mg PO BID 10/12/18 04/16/21 release simethicone 125 mg chewable tablet 125 mg PO BID-QID PRN 10/12/18 04/16/21 triamcinolone acetonide 0.025 % 1 applic topical BID 10/12/18 04/16/21 topical cream citalopram 40 mg tablet 40 mg PO DAILY 04/16/21 04/16/21 semaglutide 0.25 mg or 0.5 mg (2 0.25 mg subcut QWEEK 04/16/21 04/16/21 mg/1.5 mL) subcutaneous pen injector Allergies Allergy/AdvReac Type Severity Reaction Status Date / Time sumatriptan [From Imitrex] AdvReac Other (See Unverified 08/07/23 12:16 Comment) metals Allergy Itching Uncoded 08/07/23 12:16 onions Allergy Nausea Uncoded 08/07/23 12:16 General Stated Complaint: Palpitatns ARCADIO: 3 Review of Systems All systems reviewed & are unremarkable except as noted in HPI and below Constitutional Constitutional: Denies chills, Denies fever(s) and Denies weakness Cardiovascular Cardiovascular: Reports chest pain and Reports dyspnea Respiratory Respiratory: Reports dyspnea Gastrointestinal Gastrointestinal: Denies abdominal pain, Denies nausea and Denies vomiting Musculoskeletal Musculoskeletal: Denies joint swelling Neurologic Neurologic: Denies weakness Psychiatric Psychiatric: Denies depression Exam Const General: no acute distress Orientation: alert HENMT Head: normal to inspection Ears: external ears normal General nose exam: external nose normal Mouth: moist mucous membranes Eyes General: appearance normal, both eyes and all related structures Neck Neck: normal visual inspection Resp Effort & Inspection: normal respiratory effort and able to speak in complete sentences Auscultation: clear to auscultation bilaterally Cardio Rate: regular rate Heart Sounds: no murmurs Skin General skin exam: no rashes or lesions noted Neuro General: patient alert and patient oriented x3 Extrem General: normal to inspection Psych Mental Status: mental status grossly normal Course Vital Signs Vital signs: Vital Signs Temperature 36.6 C 08/07/23 12:13 Pulse 72 08/07/23 12:13 Respiratory Rate 16 08/07/23 12:13 Blood Pressure 122/66 08/07/23 12:13 Pulse Oximetry 94 08/07/23 12:13 Temperature 36.6 C 08/07/23 12:13 Temperature Source Skin 08/07/23 12:13 Pulse 72 08/07/23 12:13 Respiratory Rate 16 08/07/23 12:13 Blood Pressure 122/66 08/07/23 12:13 Pulse Oximetry 94 08/07/23 12:13 Pain Level 4 08/07/23 12:13 Lab/Test Results Lab/Test Results: Laboratory Tests Range/Units 08/07/23 12:26 WBC (4.4-10.8) 10^3/uL 8.38 RBC (3.93-5.22) 10^6/uL 4.54 Hgb (11.2-15.7) g/dL 12.8 Hct (36.0-46.0) % 37.1 MCV (80-95) fL 82 MCH (27.0-33.0) pg 28.2 MCHC (32.0-36.0) % 34.5 RDW (11.7-14.6) % 13.6 Plt Count (130-400) 10^3/uL 409 H MPV (8.0-11.0) fL 8.6 Immature Gran % 0.1 Neutrophils % 63.4 Lymphocytes % 26.7 Monocytes % 7.3 Eosinophils % 1.7 Basophils % 0.8 Nucleated RBC % (0.0-0.3) % 0.0 Absolute Neutrophils (1.2-6.7) 10^3/uL 5.31 Absolute Lymphocytes (1.2-3.4) 10^3/uL 2.24 Absolute Monocytes (0.1-0.8) 10^3/uL 0.61 Absolute Eosinophils (0.0-0.7) 10^3/uL 0.14 Absolute Basophils (0.0-0.2) 10^3/uL 0.07 Medical Decision Making 47-year-old female with a history of diabetes, hyperlipidemia, who comes in with intermittent feeling like her heart is beating irregularly for the past few days. States that she feels that she has a little chest pressure, denies any radiation of pain, diaphoresis, nausea or vomiting. Has also had a dry cough for few days. Denies any upper back pain, abdominal pain. She is ambulatory on arrival conscious and alert x 4 appears in no distress. She is in sinus rhythm currently and states she is currently feels like her heart is beating irregularly. She has clear lungs, no JVD, no murmur, no unilateral leg swelling or calf tenderness. On bedside ultrasound has no pericardial effusion and appears to have normal ejection fraction with no wall motion abnormalities. 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 Given her complaint of palpitations and chest pain we will proceed with EKG troponin, D-dimer, CBC and CMP. She has no tearing back pain and pulses are equal bilaterally in the peripheral extremity so doubt dissection Labs and x-ray unremarkable, has had the symptoms intermittently for 3 days so do not feel a delta troponin would be of benefit. She is stable still in sinus rhythm, do not feel she needs to be hospitalized given lack of syncope. Advised to follow-up with her primary care this week and discuss having outpatient cardiac monitoring, return precautions given Differential Diagnosis Differential Diagnosis: Palpitations, electrolyte disorder, ACS, PE, anxiety Imaging Data Radiologic Study: Attestation: I personally reviewed and interpreted this imaging study as follows: Imaging: X-Ray Radiologist's impression: No acute findings Lab Data Lab results reviewed: Yes I reviewed the patient's lab results. ECG Data Attestation: I personally reviewed and interpreted this ECG (s) as follows: Prior ECG tracings: not available for review Interpretation: Sinus, rate of 67, [place] 178, no STEMI Quality:SDOH Health Related Social Needs: No Data to Display PFSH All Active Problems (Updated 08/07/23 @ 13:48 by Omar Floyd MD) Palpitations (Acute) Migraine (Chronic) Medical History (Updated 08/07/23 @ 13:48 by Omar Floyd MD) Migraine Diabetes Surgical History (Updated 04/16/21 @ 20:10 by Ruthie Noel DO) History of hernia repair Hx of cholecystectomy H/O section Social History Smoking/Tobacco Use Status: Never Smoking risk assessment performed?: Yes Alcohol Intake: current Alcohol Intake frequency: holidays/special occasions only Drug use: Never Substance use type: does not use Housing: house Do you feel safe at home: Yes Do you feel safe in your relationship?: Yes Discharge Plan Disposition Patient Disposition: Home Condition: Stable Discharge Details Clinical Impression: Palpitations Primary Care Provider: Omar Richards ED Provider: Omar Floyd Home Meds and New Rx's Prescriptions: Continued metformin 500 mg Tablet 1,000 mg PO BID folic acid 400 mcg Tablet 0.4 mg PO DAILY pantoprazole 20 mg Tablet,Delayed Release (Dr/Ec) 20 mg PO BID levothyroxine 75 mcg Tablet 100 mcg PO DAILY triamcinolone acetonide 0.025 % Cream 1 applic TOPICAL BID carboxymethylcellulose sodium [Refresh Tears] 0.5 % Drops 1 drp OPHTHALMIC (EYE) 4-6XD PRN docusate sodium 100 mg Capsule 200 mg PO DAILY simethicone 125 mg Tablet,Chewable 125 mg PO BID-QID PRN citalopram 40 mg Tablet 40 mg PO DAILY semaglutide 0.25 mg or 0.5 mg(2 mg/1.5 mL) Pen Injector 0.25 mg SUBCUT QWEEK Discharge Instructions Instructions: Heart Palpitations (ED) Additional Instructions: Your EKG, telemetry monitoring, lab work today did not show any concerning findings. Follow-up this week with your primary care provider If you feel more ill, have severe worsening chest pain, difficulty breathing return to the emergency department for reevaluation POCUS Exam (ED) Limited Cardiac Exam DATE OF EXAM: 08/07/23 TIME OF EXAM: 12:50 PROVIDER THAT PERFORMED THE STUDY: Omar Floyd REASON FOR EXAM: Chest pain and Other indication: palpitations VISUALIZED STRUCTURES: Left ventricle and Right ventricle VIEW OBTAINED: Parasternal long-axis and Parasternal short-axis PERTINENT FINDINGS/IMPRESSION: No apparent abnormalities; No LV dysfunction, No pericardial effusion and No RV dilation Exam complete
[2023-08-07 12:51] LABS: ALT 21 U/L (14-59); AST 12 U/L (15-37); Albumin 3.6 g/dL (3.4-5.0); Alkaline Phosphatase 97 U/L (46-116); Anion Gap 10.8 mmol/L (3-11); BUN 8 mg/dL (7-18); Bilirubin, Total 0.3 mg/dL (0.2-1.0); CO2 23.2 mmol/L (21.0-32.0); CREATININE 0.8 mg/dL (0.55-1.02); Calcium 9.2 mg/dL (8.5-10.1); Chloride 104 mmol/L (98-107); Estimated GFR 92.54 (mL/min/1.73m2); Glucose 84 mg/dL (74-106); Magnesium 1.7 mg/dL (1.8-2.4); Potassium 3.9 mmol/L (3.5-5.1); Sodium 138 mmol/L (136-145); Total Protein 7.9 g/dL (6.4-8.2); Troponin I < 50 ng/L (< or =60)
[2023-08-07 13:10] LABS: D-Dimer 407 ng/mlFEU (<500)
[2023-08-07 13:46] LABS: TSH (W/Ref FT4) 2.87 uIU/mL (0.36-3.74)
--- NOTE | 2023-08-08 07:17 | NUR.NOTE ---
Accessed chart to determine orders for EKG and to determine whether or not one needs to be cancelled. Duplicate order. Nursing Note:
== END 2023-08-07 14:02 | disposition home or self-care (01) ==
PROVIDERS: Emergency Provider Emergency Medicine; PCP Internal Medicine
DX: R00.2 Palpitations (principal); R07.9 Chest pain, unspecified; E11.9 Type 2 diabetes mellitus without complications; Z79.84 Long term (current) use of oral hypoglycemic drugs; Z79.85 Long-term (current) use of injectable non-insulin antidiabetic drugs
CPT/HCPCS: 80053; 82962; 93005; 93308; 99285; 71045; 83735; 84443; 84484; 85025; 85379; 93010; 99284

== ENCOUNTER 2024-01-06 17:41 | Emergency (ER) | payer OTHER, SELFPAY ==
[2024-01-06] VITALS (18 sets, daily range): BP systolic 126–146; BP diastolic 62–78; PULSE 76–100; RESP 9–24; TEMP 35.9; O2SAT 90–98
--- NOTE | 2024-01-06 18:00 | RT.EKG_ITS ---
APPROVED REPORT Exam: Resting ECG Reason for Exam: dizzy Patient Location: E HR:92 bpm ECG Measurements Heart Rate 92 AXIS [place] 169 P 13 QRSd 81 QRS 21 QT 356 T 11 QTc 441 Conclusion Sinus rhythm at a rate of 92 without acute ischemic change with normal intervals.
--- NOTE | 2024-01-06 18:51 | ED.GENADUL_ITS ---
Discharge Plan Disposition Patient Disposition: Home Condition: Stable Discharge Details Clinical Impression: Dizziness of unknown cause, Lactic acidosis Primary Care Provider: Omar Richards ED Provider: Guillermo Leal Home Meds and New Rx's Prescriptions: Continued verapamil 180 mg capsule,ext rel. pellets 24 hr 180 mg PO DAILY atorvastatin 20 mg tablet 20 mg PO DAILY Botox 200 unit recon soln 10 unit intradermal [id number] metformin 500 mg Tablet 1,000 mg PO BID pantoprazole 20 mg Tablet,Delayed Release (Dr/Ec) 20 mg PO BID levothyroxine 75 mcg Tablet 100 mcg PO DAILY triamcinolone acetonide 0.025 % Cream 1 applic TOPICAL BID carboxymethylcellulose sodium [Refresh Tears] 0.5 % Drops 1 drp OPHTHALMIC (EYE) 4-6XD PRN semaglutide 0.25 mg or 0.5 mg(2 mg/1.5 mL) Pen Injector 0.5 mg SUBCUT QWEEK Discharge Instructions Instructions: Dizziness, Adult ED Additional Instructions: You were seen in the emergency department for your worsening dizziness and process of [place] neurology workup, we performed a CTA of the head and neck that shows no stroke, no intracranial abnormality or bleeding, cardiac workup is negative, there is no evidence of infection on your complete blood count, your white blood cells are normal. There was a mild lactic acidosis without concern for sepsis we did perform an infection search and blood cultures as well as a tick panel pending. [facility] this for dizziness relief. He had increased lipase which can be a marker of acute pancreatitis but we did not see evidence for this on CT, this can be often cleared with a clear fluid diet for a day or 2 and bowel rest. Please continue your [facility] workup, return for emergent mental status changes, severe dizziness with gait abnormality, palpitations, near fainting, visual changes. Referrals: Omar Richards [Primary Care Provider] - HPI General Date/Time Provider Initiated Documentation: 01/06/24 18:18 . HPI Narrative: 48 year-old female presents to ED today by POV/ambulating with her family with a chief complaint of severe dizziness- has had vertigo in the past- has 3 brain growths, has MRI referral, EEG referral, and heart [facility]. Over the past couple days she has had severe dizziness, nausea, room spinning sensation, near syncope without LOC- and brain fog where she feels like she is completely out of focus, with onset starting yesterday. Quality described as room-spinning, brain fog, spacing out, no radiation to shortness of breath, chest pain, abdominal pain, vomiting, bowel/urinary changes, possibility of , slurred speech. Severity is described as severe for dizziness. Palliating factors include nothing specific. Provoking factors include nothing specific. Patient not anticoagulated. Related Data Home Medications ?Medication ?Instructions ?Recorded ?Confirmed carboxymethylcellulose sodium 0.5 1 drp ophthalmic (eye) 4-6XD PRN 10/12/18 01/06/24 % eye drops (Refresh Tears) levothyroxine 75 mcg tablet 100 mcg PO DAILY 10/12/18 01/06/24 metformin 500 mg tablet 1,000 mg PO BID 10/12/18 01/06/24 pantoprazole 20 mg tablet,delayed 20 mg PO BID 10/12/18 01/06/24 release triamcinolone acetonide 0.025 % 1 applic topical BID 10/12/18 01/06/24 topical cream semaglutide 0.25 mg or 0.5 mg (2 0.5 mg subcut QWEEK 04/16/21 01/06/24 mg/1.5 mL) subcutaneous pen injector atorvastatin 20 mg tablet 20 mg PO DAILY 01/06/24 01/06/24 onabotulinumtoxinA 200 unit 10 unit intradermal [id number] 01/06/24 01/06/24 solution for injection (Botox) verapamil 180 mg 24 hr 180 mg PO DAILY 01/06/24 01/06/24 capsule,extended release Allergies Allergy/AdvReac Type Severity Reaction Status Date / Time sumatriptan (From Imitrex) AdvReac Other (See Unverified 01/06/24 18:29 Comment) metals Allergy Itching Uncoded 01/06/24 18:29 onions Allergy Nausea Uncoded 01/06/24 18:29 General Stated Complaint: Dizzy/Sync ARCADIO: 3 Review of Systems All systems reviewed & are unremarkable except as noted in HPI and below Exam Narrative Exam Narrative: GENERAL APPEARANCE: Well-nourished, non-toxic, awake and alert, atraumatic, no acute distress. SKIN: Warm, pink, dry, intact, without rashes/lesions/ulcerations. HEAD: Normocephalic, atraumatic, normal hair distribution for gender/age. EYES: Pupils PERRLA, EOMs intact without nystagmus, normal conjunctiva, no exudates on lids/lashes. ENT: Nares patent, no circumoral cyanosis, no facial swelling NECK: Supple, trachea midline, painless cervical ROM. LUNGS/CHEST: Lungs CTA bilaterally- no rhonchi/rales/wheezes diffusely, non-la bored respirations, normal A/P diameter, symmetrical expansion, no chest wall deformity HEART (CV/PV): Regular rate and rhythm without murmur, no peripheral edema, no JVD. ABDOMEN: Soft, non-distended, no guarding, no RUQ/epigastric tenderness. MSK: Normal ROM, no swelling/deformity to bilateral UEs or LEs, moving all extremities without weakness, no cyanosis, spine midline without tenderness, no rmal curvature. NEURO: Mental Status AAOx4 - alert to person, place, time, events No facial droop, no forehead involvement, no dysmetria with cerebellar testing, HINTS exam negative for central signs Motor: No focal weakness - strength 5/5 in bilateral UEs and LEs, proximal and distal, symmetric. Sensory: sensation intact to light touch globally. Gait normal: patient ambulated without ataxia into ED room. PSYCH: euthymic, cooperative, pleasant, appropriate speech Course Vital Signs Vital signs: Vital Signs Temperature 35.9 C L 01/06/24 17:59 Pulse 100 H 01/06/24 17:59 Respiratory Rate 18 01/06/24 17:59 Blood Pressure 138/78 01/06/24 17:59 Pulse Oximetry 98 01/06/24 17:59 Temperature 35.9 C L 01/06/24 17:59 Pulse 100 H 01/06/24 17:59 Respiratory Rate 18 01/06/24 18:34 Respiratory Effort Normal, Non-Labored 01/06/24 18:34 Respiratory Depth Normal 01/06/24 18:34 Respiratory Pattern Normal 01/06/24 18:34 Blood Pressure 138/78 01/06/24 17:59 Pulse Oximetry 98 01/06/24 17:59 Oxygen Delivery Method Room Air 01/06/24 17:59 Oxygen Flow Rate 0 01/06/24 17:59 Medical Decision Making This dictation utilizes [id number] dictation software and may contain unedited grammatical errors. 48 year-old female presents to ED today by POV/ambulating with her family with a chief complaint of severe dizziness- has had vertigo in the past- has 3 brain growths, has MRI referral, EEG referral, and heart [facility]. Over the past couple days she has had severe dizziness, nausea, room spinning sensation, near syncope without LOC- and brain fog where she feels like she is completely out of focus, with onset starting yesterday. Quality described as room-spinning, brain fog, spacing out, no radiation to shortness of breath, chest pain, abdominal pain, vomiting, bowel/urinary changes, possibility of , slurred speech. Severity is described as severe for dizziness. Palliating factors include nothing specific. Provoking factors include nothing specific. Patients' medical history: Migraine, diabetes. Family and social history: No recent travel, no sick contacts, denies any EtOH use. Pertinent exam findings / vital signs include neuro intact without dysmetria, hints exam negative, benign cardiopulmonary status, nontoxic, benign abdomen without any tenderness. Differential / pathologies of concern include brain mass, complex migraine, BPPV, partial seizure disorder, tickborne illness, infection/sepsis, thyroid dysfunction, electrolyte abnormality. Diagnostic studies of: -CBC, CMP, magnesium, TSH, urinalysis, ammonia, BNP, lactate, lipase, procalcitonin, troponin I, CTA head and neck, EKG, tick and Lyme panel, blood cultures, PT/INR,, CT abdomen/pelvis with contrast. -CBC shows no leukocytosis, no anemia -Initial lactate 2.0, gave 1 L IV fluids and repeat was 2.1, concern for sepsis -Procalcitonin negative -TSH within normal limits -BNP and troponin negative- Do not suspect any cardiac etiology for dizziness -Lipase is elevated to 133, possible pancreatitis -Magnesium 1.4, will replete with IV magnesium -Ammonia negative -Tick panel pending -Blood cultures pending -CTA of the head and neck is completely normal, there are no brain masses seen, no vascular abnormality -EKG shows sinus rhythm at a rate of 92 without ischemic changes, normal axis, T wave inversion in lead III, normal intervals -CT abdomen pelvis shows no evidence of acute pancreatitis or other emergent or infectious abdominal etiologies Interventions of: -1L IVF, 2gm IV magnesium ED Course/Assessment/Plan: 48-year-old female seen for dizziness-is being worked up by [place] neurology for brain growths-has MRI referral in process as well as EEG and heart monitor, yesterday had progressive dizziness as well as brain fog, could not focus while watching a school play of her daughters. Having room spinning sensation, was given meclizine by [place] and has not trialed this medicine yet, Zofran was ineffective. I did perform a CT of the head and neck which shows no brain masses, no vascular abnormality or strokes, on lab workup she had an initial lactate of 2.0 that increased to 2.1 without any signs of infection anywhere, she did have a pancreatitis on labs but no evidence of acute pancreatitis on CT, did replete her magnesium which could be contributing to her dizziness and recommend she use [id number] supplements of this going forward, I have a tick panel pending and she was stable throughout visit and remained nontoxic and neuro intact. I counseled her on strict return criteria for any worsening especially with mental status changes but continuing with her pursuit of neurology workup as an outpatient. Findings not consistent with stroke, seizure, ACS, acute emergent abdominal pathology, hepatic encephalopathy, thyroid dysfunction, infection. Disposition of Lactic Acidosis, Dizziness of Unknown Cause. Patient verbalized understanding of the plan and return to ED criteria and engaged in shared decision making. Medical Records Medical records reviewed: Yes I reviewed the patient's medical records. Imaging Data Radiologic Study: Attestation: I personally reviewed and interpreted this imaging study as follows: Imaging: CT Scan Radiologist's impression: Exam: CTA Head Without And With Contrast, Arteriography Exam date and time: 01/06/2024 8:19 PM Age: 48 years old Clinical indication: Other: Dizziness, known brain growths; Additional info: Dizziness, known brain growths TECHNIQUE: Imaging protocol: Computed tomographic angiography of the head without and with contrast. Exam focused on the arteries. 3D rendering (Not supervised by radiologist): MIP and/or 3D reconstructed images were created by the technologist. Contrast material: 350; Contrast volume: 85 ml; Contrast route: INTRAVENOUS (IV); COMPARISON: No relevant prior studies available. FINDINGS: ANTERIOR CIRCULATION: Right internal carotid artery: Intracranial segment is patent with no significant stenosis or occlusion. No aneurysm. Right middle cerebral artery: No occlusion or significant stenosis. No aneurysm. Right anterior cerebral artery: No occlusion or significant stenosis. No aneurysm. Left internal carotid artery: Intracranial segment is patent with no significant stenosis. No aneurysm. Left middle cerebral artery: No occlusion or significant stenosis. No aneurysm. Left anterior cerebral artery: No occlusion or significant stenosis. No aneurysm. POSTERIOR CIRCULATION: Right vertebral artery: No occlusion or significant stenosis. No aneurysm. Left vertebral artery: No occlusion or significant stenosis. No aneurysm. Basilar artery: No occlusion or significant stenosis. No aneurysm. Right posterior cerebral artery: No occlusion or significant stenosis. No aneurysm. Left posterior cerebral artery: No occlusion or significant stenosis. No aneurysm. HEAD: Brain: Normal. No hemorrhage. Unremarkable white matter. No mass effect. Cerebral ventricles: Normal. No ventriculomegaly. Bones: Unremarkable. No acute fracture. Paranasal sinuses: Visualized sinuses are normal. No fluid levels. Mastoid air cells: Visualized mastoids are normal. No mastoid effusion. Soft tissues: Unremarkable. IMPRESSION: 1. No large vessel occlusion. 2. Unremarkable CT head. PROCEDURE INFORMATION: Exam: CTA Neck Without And With Contrast Exam date and time: 01/06/2024 8:19 PM Age: 48 years old Clinical indication: Other: Dizziness, known brain growths; Additional info: Dizziness, known brain growths TECHNIQUE: Imaging protocol: Computed tomographic angiography of the neck without and with contrast. Exam focused on the cervical segments of the vasculature. 3D rendering (Not supervised by radiologist): MIP and/or 3D reconstructed images were created by the technologist. Contrast material: 350; Contrast volume: 85 ml; Contrast route: INTRAVENOUS (IV); COMPARISON: CR XR PORTABLE CHEST AP 08/07/2023 1:01 PM FINDINGS: Right common carotid artery: No stenosis. No dissection or occlusion. Right internal carotid artery: No stenosis of the extracranial segment. No dissection or occlusion. Right external carotid artery: No occlusion or stenosis of the origin. Left common carotid artery: No stenosis. No dissection or occlusion. Left internal carotid artery: No stenosis of the extracranial segment. No dissection or occlusion. Left external carotid artery: No occlusion or stenosis of the origin. Right vertebral artery: No stenosis. No dissection or occlusion. Left vertebral artery: No stenosis. No dissection or occlusion. Soft tissues: Normal. No significant soft tissue swelling. Bones/joints: No acute fracture. IMPRESSION: No stenosis or occlusion. REFERENCES: NASCET CRITERIA. The degree of stenosis in the cervical segment of the internal carotid artery is based on NASCET criteria. Normal is no stenosis. Mild is less than 50% stenosis. Moderate is 50-69% stenosis. Severe is 70% to 99% stenosis. Total occlusion is no detectable patent lumen. Dictated and Authenticated by: Tru Rivera MD. Lab Data Lab results reviewed: Yes I reviewed the patient's lab results. Labs: 01/06/24 20:10 Blood Blood Culture - Pending 01/06/24 19:25 Blood Blood Culture - Pending Laboratory Tests Range/Units 01/06/24 01/06/24 01/06/24 18:25 19:10 19:25 WBC (4.4-10.8) 10^3/uL 9.26 RBC (3.93-5.22) 10^6/uL 4.78 Hgb (11.2-15.7) g/dL 13.7 Hct (36.0-46.0) % 40.4 MCV (80-95) fL 85 MCH (27.0-33.0) pg 28.7 MCHC (32.0-36.0) % 33.9 RDW (11.7-14.6) % 13.2 Plt Count (130-400) 10^3/uL 446 H MPV (8.0-11.0) fL 9.0 Immature Gran % % 0.3 Neutrophils % % 66.0 Lymphocytes % % 24.3 Monocytes % % 7.0 Eosinophils % % 1.6 Basophils % % 0.8 Nucleated RBC % (0.0-0.3) % 0.0 Absolute Neutrophils (1.2-6.7) 10^3/uL 6.11 Absolute Lymphocytes (1.2-3.4) 10^3/uL 2.25 Absolute Monocytes (0.1-0.8) 10^3/uL 0.65 Absolute Eosinophils (0.0-0.7) 10^3/uL 0.15 Absolute Basophils (0.0-0.2) 10^3/uL 0.07 VBG Lactate (0.6-1.4) mmol/L 2.0 H Sodium (136-145) mmol/L 140 Potassium (3.5-5.1) mmol/L 3.8 Chloride (98-107) mmol/L 103 Carbon Dioxide (21.0-32.0) mmol/L 27.2 Anion Gap (3-11) mmol/L 9.8 BUN (7-18) mg/dL 13 Creatinine (0.55-1.02) mg/dL 1.0 Est GFR (CKD-EPI 2020) (mL/min/1.73m2) 70.36 Glucose (74-106) mg/dL 134 H Calcium (8.5-10.1) mg/dL 9.5 Magnesium (1.8-2.4) mg/dL 1.4 L Total Bilirubin (0.2-1.0) mg/dL 0.28 AST (15-37) U/L 16 ALT (14-59) U/L 29 Alkaline Phosphatase (46-116) U/L 122 H Ammonia (11-32) umol/L 11 Troponin I (< or =60) ng/L < 50 NT-Pro-B Natriuret Pep (<300) pg/mL 25 Total Protein (6.4-8.2) g/dL 8.4 H Albumin (3.4-5.0) g/dL 3.9 Lipase (16-77) U/L 133 H Procalcitonin ng/mL < 0.1 TSH (0.36-3.74) uIU/mL 1.20 Urine Color (Yellow) Yellow Urine Clarity (Clear) Clear Urine pH (5-8) 5.5 Ur Specific Aneta (1.005-1.025) >= 1.030 H Urine Protein (Neg-Trace) mg/dL Trace Urine Ketones (Negative) mg/dL Trace H Urine Blood (Negative) Negative Urine Nitrite (Negative) Negative Urine Bilirubin (Negative) Negative Urine Urobilinogen (Up to 0.2) mg/dL 1.0 H Ur Leukocyte Esterase (Negative) Negative Urine Glucose (Negative) mg/dL Negative Quality:SDOH Health Related Social Needs: No Data to Display PFSH All Active Problems (Updated 01/06/24 @ 23:35 by TODD Larson) Lactic acidosis (Acute) Dizziness of unknown cause (Acute) Migraine (Chronic) Medical History (Updated 01/06/24 @ 23:35 by TODD Larson) Migraine Diabetes Surgical History (Updated 10/26/21 @ 20:10 by Ruthie Noel DO) History of hernia repair Hx of cholecystectomy H/O section Social History Smoking/Tobacco Use Status: Never Smoking risk assessment performed?: Yes Alcohol Intake: current Alcohol Intake frequency: holidays/special occasions only Drug use: Never Substance use type: does not use Housing: house Do you feel safe at home: Yes Do you feel safe in your relationship?: Yes
--- NOTE | 2024-01-06 19:00 | DI.CT_ITS ---
Exam(s) CT BRAIN NECK CTA EXAM: CT BRAIN NECK CTA CLINICAL HISTORY: dizziness, known brain growths. TECHNIQUE: Imaging Protocol: Axial CT angiography was performed with multi-slice acquisition and mu lti-planar and/or 3D reconstructions. CONTRAST MATERIAL: Intravenous: Omnipaque 350 Contrast volume:structured data in ml COMPARISON: No exams were available for comparison FINDINGS: CTA Neck W: Aortic arch anatomy: The aortic arch exhibits bovine configuration. Anterior circulation: Both common carotid arteries ascend with normal luminal diameters. At the level the carotid bulbs and proximal internal carotid arteries there is no evidence of signifi cant atherosclerotic plaque. No significant narrowing. No dissection. Posterior circulation: Both vertebral arteries originate in conventional fashion off of the subclavian arteries and there is no obvious stenosis at the origin of the vertebral arteries. Both vertebral arteries exhibit normal luminal diameters within the foramen transversarium. Both vertebral arteries contribute to the formation of the basilar artery at the skull base. CTA Brain W: Anterior circulation: Both internal carotid arteries are patent in the skull base-carotid canals as well as within the cave rnous sinuses. The supraclinoid aspects of the ICAs are patent. Both A1 segments are patent as are the anterior cer ebral arteries and there is no evidence of aneurysm at the level of the anterior communicating artery . Both middle cerebral arteries are patent with no evidence of significant stenosis nor intraluminal th rombus. There also no aneurysms of these vessels. Posterior circulation: The basilar artery ascends in the midline. Distally it gives off patent bilateral superior cerebella r arteries. Above this level the basilar artery terminates as patent left posterior cerebral artery. The right p osterior cerebral artery is fed by posterior communicating artery on the right side of the campo-of- Naqvi. There is no evidence of aneurysm at the tip of the basilar artery nor elsewhere in the [id number] is. CT BRAIN: There is no evidence of intracranial hemorrhage, mass effect, or shift of midline structures. There are no extra-axial fluid collections. Ventricles are not enlarged or shifted. There are no ring enh ancing lesions in the brain and no abnormal meningeal enhancement. IMPRESSION: 1. Patent carotid arteries in the neck. No hemodynamically significant stenosis. 2. Patent vertebral arteries. 3. Patent intracranial arteries. No aneurysms. 4. No ring enhancing lesions in the brain. No abnormal meningeal enhancement. No intracranial hemor rhage. RADIATION DOSE DELIVERED: Total DLP DATA REPOSITORY: All CT scans at this facility are submitted to the National Radiology Data Registry (NRDR) Dose Index Registry (DIR) with the [employer] (A[employer]). RADIATION OPTIMIZATION: All CT scans at this facility use at least one of these dose optimization te chniques: automated exposure control; mA and/or kV adjustment per patient size (includes targeted exa ms where dose is matched to clinical indication); or iterative reconstruction.
[2024-01-06 19:21] LABS: Abs Immature Grans 0.03 10^3/uL (0.0-0.06); Absolute Basophil Count 0.07 10^3/uL (0.0-0.2); Absolute Eosinophil Count 0.15 10^3/uL (0.0-0.7); Absolute Lymphocyte Count 2.25 10^3/uL (1.2-3.4); Absolute Monocyte Count 0.65 10^3/uL (0.1-0.8); Absolute Neutrophil Count 6.11 10^3/uL (1.2-6.7); Basophils % 0.8 %; Eosinophils % 1.6 %; HCT 40.4 % (36.0-46.0); HGB 13.7 g/dL (11.2-15.7); Immature Grans % 0.3 %; Lymphocytes % 24.3 %; MCH 28.7 pg (27.0-33.0); MCHC 33.9 % (32.0-36.0); MCV 85 fL (80-95); Platelet Count 446 10^3/uL (130-400); RBC 4.78 10^6/uL (3.93-5.22); RDW 13.2 % (11.7-14.6); RDW-SD 40.6 fL; WBC 9.26 10^3/uL (4.4-10.8)
[2024-01-06 19:31] LABS: Bilirubin Negative (Negative); Blood Negative (Negative); Clarity Clear (Clear); Glucose Negative (Negative); Ketones Trace mg/dL (Negative); Leukocyte Esterase Negative (Negative); Nitrite Negative (Negative); Specific Gravity >= 1.030 (1.005-1.025); pH 5.5 (5-8)
[2024-01-06 19:38] LABS: ALT 29 U/L (14-59); AST 16 U/L (15-37); Albumin 3.9 g/dL (3.4-5.0); Alkaline Phosphatase 122 U/L (46-116); Anion Gap 9.8 mmol/L (3-11); BUN 13 mg/dL (7-18); Bilirubin, Total 0.28 mg/dL (0.2-1.0); CO2 27.2 mmol/L (21.0-32.0); Calcium 9.5 mg/dL (8.5-10.1); Chloride 103 mmol/L (98-107); Estimated GFR 70.36 (mL/min/1.73m2); Glucose 134 mg/dL (74-106); Lipase 133 U/L (16-77); Magnesium 1.4 mg/dL (1.8-2.4); NT-proBNP 25 pg/mL (<300); Potassium 3.8 mmol/L (3.5-5.1); Sodium 140 mmol/L (136-145); Total Protein 8.4 g/dL (6.4-8.2); Troponin I < 50 ng/L (< or =60)
[2024-01-06 19:44] LABS: Ammonia 11 umol/L (11-32)
[2024-01-06 20:12] LABS: Procalcitonin < 0.1 ng/mL
[2024-01-06] MEDS: Normal Saline - Diluent 50 ML VIAL IJ ×2 (20:23→22:58)
[2024-01-06] MEDS: Omnipaque 350 MG/ML 100 ML BTL IJ ×2 (20:23→22:58)
[2024-01-06] MEDS: MAGNESIUM SULFATE 2 GM/50 ML BAG IVINF (20:54)
[2024-01-06] MEDS: Normal Saline 1,000 ML 1000 ML IV (20:55)
--- NOTE | 2024-01-06 21:23 | DI.VRAD_ITS ---
PROCEDURE INFORMATION: Exam: CTA Head Without And With Contrast, Arteriography Exam date and time: 01/06/2024 8:19 PM Age: 48 years old Clinical indication: Other: Dizziness, known brain growths; Additional info: Dizziness, known brain growths TECHNIQUE: Imaging protocol: Computed tomographic angiography of the head without and with contrast. Exam focused on the arteries. 3D rendering (Not supervised by radiologist): MIP and/or 3D reconstructed images were created by the technologist. Contrast material: 350; Contrast volume: 85 ml; Contrast route: INTRAVENOUS (IV); COMPARISON: No relevant prior studies available. FINDINGS: ANTERIOR CIRCULATION: Right internal carotid artery: Intracranial segment is patent with no significant stenosis or occlusion. No aneurysm. Right middle cerebral artery: No occlusion or significant stenosis. No aneurysm. Right anterior cerebral artery: No occlusion or significant stenosis. No aneurysm. Left internal carotid artery: Intracranial segment is patent with no significant stenosis. No aneurysm. Left middle cerebral artery: No occlusion or significant stenosis. No aneurysm. Left anterior cerebral artery: No occlusion or significant stenosis. No aneurysm. POSTERIOR CIRCULATION: Right vertebral artery: No occlusion or significant stenosis. No aneurysm. Left vertebral artery: No occlusion or significant stenosis. No aneurysm. Basilar artery: No occlusion or significant stenosis. No aneurysm. Right posterior cerebral artery: No occlusion or significant stenosis. No aneurysm. Left posterior cerebral artery: No occlusion or significant stenosis. No aneurysm. HEAD: Brain: Normal. No hemorrhage. Unremarkable white matter. No mass effect. Cerebral ventricles: Normal. No ventriculomegaly. Bones: Unremarkable. No acute fracture. Paranasal sinuses: Visualized sinuses are normal. No fluid levels. Mastoid air cells: Visualized mastoids are normal. No mastoid effusion. Soft tissues: Unremarkable. IMPRESSION: 1. No large vessel occlusion. 2. Unremarkable CT head. PROCEDURE INFORMATION: Exam: CTA Neck Without And With Contrast Exam date and time: 01/06/2024 8:19 PM Age: 48 years old Clinical indication: Other: Dizziness, known brain growths; Additional info: Dizziness, known brain growths TECHNIQUE: Imaging protocol: Computed tomographic angiography of the neck without and with contrast. Exam focused on the cervical segments of the vasculature. 3D rendering (Not supervised by radiologist): MIP and/or 3D reconstructed images were created by the technologist. Contrast material: 350; Contrast volume: 85 ml; Contrast route: INTRAVENOUS (IV); COMPARISON: CR XR PORTABLE CHEST AP 08/07/2023 1:01 PM FINDINGS: Right common carotid artery: No stenosis. No dissection or occlusion. Right internal carotid artery: No stenosis of the extracranial segment. No dissection or occlusion. Right external carotid artery: No occlusion or stenosis of the origin. Left common carotid artery: No stenosis. No dissection or occlusion. Left internal carotid artery: No stenosis of the extracranial segment. No dissection or occlusion. Left external carotid artery: No occlusion or stenosis of the origin. Right vertebral artery: No stenosis. No dissection or occlusion. Left vertebral artery: No stenosis. No dissection or occlusion. Soft tissues: Normal. No significant soft tissue swelling. Bones/joints: No acute fracture. IMPRESSION: No stenosis or occlusion. REFERENCES: NASCET CRITERIA. The degree of stenosis in the cervical segment of the internal carotid artery is based on NASCET criteria. Normal is no stenosis. Mild is less than 50% stenosis. Moderate is 50-69% stenosis. Severe is 70% to 99% stenosis. Total occlusion is no detectable patent lumen. Dictated and Authenticated by: Tru Rivera MD. Ordering:SONI Li MD
--- NOTE | 2024-01-06 22:15 | DI.CT_ITS ---
Exam(s) CT ABDOMEN PELVIS W EXAM: CT ABDOMEN PELVIS W CLINICAL HISTORY: pancreatitis, persistent elev lactate. TECHNIQUE: Imaging Protocol: Axial computed tomography images with coronal and sagittal reformatted images were created and reviewed CONTRAST MATERIAL: Intravenous: Omnipaque-350 100cc Oral: None COMPARISON: No exams were available for comparison FINDINGS: VISUALIZED LUNG BASES: No nodules nor pleural effusions evident. ABDOMEN: There is no ascites. LIVER: Liver size is slightly prominent. Liver is hypodense implying steatosis. There no discrete f ocal hepatic lesions nor dilated intrahepatic ducts. GALLBLADDER/BILIARY: Gallbladder is surgically absent. CBD is not dilated. PANCREAS: Pancreas appears unremarkable with no evidence of mass nor dilated pancreatic duct and ther e is no evidence of obvious pancreatitis. No pancreatic calcifications. SPLEEN: Spleen is not enlarged. No obvious intrasplenic lesions. Splenic and portal veins are paten t. ADRENALS: There are no significant adrenal masses. KIDNEYS:No cysts evident. No solid renal masses. No calculi nor hydronephrosis.. ABDOMINAL AORTA: Abdominal aorta is not enlarged. Retroaortic left renal vein noted, variant seen in approximately 5 percent of the general population LYMPH NODES:There is no retroperitoneal nor paraaortic adenopathy. ABDOMINAL WALL: No evidence of significant anterior abdominal wall nor inguinal hernia. GI: There is no evidence of bowel obstruction, free air, nor abscess. PELVIS: GI: No evidence of appendicitis.No evidence of sigmoid diverticulitis. LYMPH NODES: There is no intrapelvic nor inguinal adenopathy. REPRODUCTIVE: Uterus size normal. There is an IUD in satisfactory position within the endometrial ca nal. There are no abnormal adnexal masses. No free fluid in the pelvis. URINARY BLADDER: No calculi nor obvious masses evident. Pelvic ureters are not dilated. OSSEOUS: No fractures and no significant osseous lesions. IMPRESSION: 1. No CT evidence of pancreatitis, as per request. 2. Gallbladder surgically absent. The biliary tree is not dilated. 3. There is an IUD noted in the uterus. RADIATION DOSE DELIVERED: Total DLP DATA REPOSITORY: All CT scans at this facility are submitted to the National Radiology Data Registry (NRDR) Dose Index Registry (DIR) with the [employer] (ACR). RADIATION OPTIMIZATION: All CT scans at this facility use at least one of these dose optimization te chniques: automated exposure control; mA and/or kV adjustment per patient size (includes targeted exa ms where dose is matched to clinical indication); or iterative reconstruction.
[2024-01-06 22:22] LABS: Lactate 2.1 mmol/L (0.6-1.4)
--- NOTE | 2024-01-06 23:28 | DI.VRAD_ITS ---
PROCEDURE INFORMATION: Exam: CT Abdomen And Pelvis With Contrast Exam date and time: 01/06/2024 10:55 PM Age: 48 years old Clinical indication: Abnormal findings; Abnormal lab test; Other: Persistent elev lactate; Additional info: Pancreatitis, persistent elev lactate TECHNIQUE: Imaging protocol: Computed tomography of the abdomen and pelvis with contrast. Contrast material: OMNI 360; Contrast volume: 100 ml; Contrast route: INTRAVENOUS (IV); COMPARISON: CR XR PORTABLE CHEST AP 08/07/2023 1:01 PM FINDINGS: Liver: Hepatomegaly and diffuse fatty infiltrationNo mass. Gallbladder and biliary ducts: Prior cholecystectomy. No ductal dilation. Pancreas: Normal. No ductal dilation. Spleen: Normal. No splenomegaly. Adrenal glands: Normal. No mass. Kidneys and ureters: Normal. No hydronephrosis. A retroaortic left renal vein is noted, a normal variant. Stomach and bowel: Unremarkable. No obstruction. No mucosal thickening. Appendix: No evidence of appendicitis. Intraperitoneal space: Unremarkable. No free air. No significant fluid collection. Vasculature: Unremarkable. No abdominal aortic aneurysm. Lymph nodes: Unremarkable. No enlarged lymph nodes. Urinary bladder: Unremarkable as visualized. Reproductive: Intrauterine device in the uterus. Bones/joints: Unremarkable. No acute fracture. Soft tissues: Unremarkable. IMPRESSION: No CT evidence for acute pancreatitis Nonurgent findings as noted Dictated and Authenticated by: Tru Rivera MD. Ordering:SONI Li MD
[2024-01-06 23:31] LABS: Prothrombin Time 10.3 sec (9.1-11.1)
[2024-01-08 13:16] LABS: Lyme Ab w Rflx to Lyme Confirm Negative (Negative)
[2024-01-10 09:46] LABS: Anaplasma phagocytophilum Negative (Negative); B. miyamotoi PCR Negative (Negative); Babesia divergens/MO-1 Negative (Negative); Babesia duncani Negative (Negative); Babesia microti Negative (Negative); Ehrlichia chaffeensis Negative (Negative); Ehrlichia ewingii/canis Negative (Negative); Ehrlichia muris eauclairensis Negative (Negative)
== END 2024-01-06 23:49 | disposition home or self-care (01) ==
PROVIDERS: Emergency Provider Physician Assistant; PCP Internal Medicine
DX: R42 Dizziness and giddiness (principal); E87.20 Acidosis, unspecified; R11.0 Nausea
CPT/HCPCS: 36415; 36416; 70496; 70498; 80053; 82962; 83690; 84145; 87040; 87798; 93005; 96365; 99285; 74177; 81003; 82140; 83605; 83735; 83880; 84443; 84484; 85025; 85610; 86618; 93010; 99283; J3475; J3490

== ENCOUNTER → 2024-01-22 00:07 | Outpatient (CLI) | payer OTHER, SELFPAY ==
--- NOTE | 2024-01-22 | DI.MRI_ITS ---
Exam(s) MR BRAIN WO EXAM: MR BRAIN WO CLINICAL HISTORY: ALTERED MENTAL STATUS,R41.82,? SEIZURE,[id number] TECHNIQUE: Multiplanar multisequence MRI of the brain was performed. COMPARISON: CT CT BRAIN NECK CTA from 01/06/2024 FINDINGS: VENTRICLES AND EXTRA AXIAL SPACES: Normal in size and morphology for the patient's age. MIDLINE SHIFT: None. CEREBRAL PARENCHYMA: No focus of restricted diffusion to suggest acute infarct. No space-occupying le joni identified. No abnormal high signal lesions in the white matter. HEMORRHAGE: None. BRAINSTEM/CEREBELLUM: Normal. VISUALIZED PARANASAL SINUSES/MASTOIDS:Clear. Vasculature: Normal flow void. PITUITARY GLAND: Unremarkable. ORBITS: Unremarkable. IMPRESSION: Unremarkable MRI of the brain. DATA REPOSITORY:
== END ==
PROVIDERS: PCP Internal Medicine; Visit Provider Internal Medicine
DX: R41.82 Altered mental status, unspecified (principal)
CPT/HCPCS: 70551

== ENCOUNTER 2024-01-28 13:47 | Emergency (ER) | payer OTHER, SELFPAY ==
[2024-01-28] VITALS (14 sets, daily range): BP systolic 110–143; BP diastolic 66–85; PULSE 78–91; RESP 15–21; TEMP 36.9–37.4; O2SAT 93–98
--- NOTE | 2024-01-28 13:45 | RT.EKG_ITS ---
APPROVED REPORT Exam: Resting ECG Reason for Exam: dizziness Patient Location: E HR:74 bpm ECG Measurements Heart Rate 74 AXIS NJ 169 P 13 QRSd 83 QRS 58 QT 369 T 30 QTc 416 Conclusion Sinus rhythm Normal axis, no interval abnormality No STEMI
--- NOTE | 2024-01-28 14:10 | ED.GENADUL_ITS ---
Discharge Plan Disposition Patient Disposition: Home Condition: Stable Discharge Details Clinical Impression: Dizziness of unknown cause, Migraine, Hypomagnesemia Primary Care Provider: Omar Richards ED Provider: Carla Blood Home Meds and New Rx's Prescriptions: No Action verapamil 180 mg capsule,ext rel. pellets 24 hr 180 mg PO DAILY atorvastatin 20 mg tablet 20 mg PO DAILY Botox 200 unit recon soln 10 unit intradermal [id number] metformin 500 mg Tablet 1,000 mg PO BID pantoprazole 20 mg Tablet,Delayed Release (Dr/Ec) 20 mg PO BID levothyroxine 75 mcg Tablet 100 mcg PO DAILY triamcinolone acetonide 0.025 % Cream 1 applic TOPICAL BID carboxymethylcellulose sodium [Refresh Tears] 0.5 % Drops 1 drp OPHTHALMIC (EYE) 4-6XD PRN semaglutide 0.25 mg or 0.5 mg(2 mg/1.5 mL) Pen Injector 0.5 mg SUBCUT QWEEK Discharge Instructions Instructions: Vertigo ED Additional Instructions: You were seen in the emergency department today for evaluation of dizziness and nausea. In our department A full physical examination performed, had laboratory studies that were largely reassuring, though your magnesium level is still slightly low and you received intravenous magnesium during this visit. You had a CT scan that did not show any abnormalities in your brain or blood vessels to account for your symptoms today. You received medications to manage your symptoms and can continue to take your home migraine medicines, Zofran for nausea, and your meclizine if it is helpful. I did give you a short course of Valium as this helped your symptoms here in the emergency department today, but you should avoid mixing this medication with alcohol or other sedating medications, and should not take this medication before driving or operating machinery as it can cause sleepiness. Please keep all appointments with your neurologist for ongoing workup of this condition, and you should return to the emergency department if you have a sudden or severe headache, changes in vision, weakness, numbness, or any other symptoms that cause you concern. Thank you for allowing us to be part of your care. HPI General Mode of arrival: ambulatory . Date/Time Provider Initiated Documentation: 01/28/24 13:50 . Limitations to Documentation: no limitations . Information obtained by: patient and family . HPI Narrative: MDM: In brief, this is a 48-year-old female patient presenting for evaluation of vertigo, nausea without vomiting. She has been experiencing the symptoms for approximately 1 month, and has undergone previous workup to include CT/CTA and MRI without contrast of her brain without acute findings to explain her symptoms. My differential includes but is not limited to peripheral vertigo symptoms, including M?ni?re's disease, labyrinth-itis, the lack of reproducibility and the prolonged duration is less consistent with BPPV. I certainly considered central vertiginous symptoms, including vestibular migraines. Reassuringly, the patient had an MRI 6 days ago that did not show any acute stroke, mass effect, or other significant abnormalities to account for her symptoms. The patient does not have any visual changes to suggest IIH, does not have any focal neurodeficits to significantly increase my concern for acute stroke or intracranial hemorrhage, nor take hormonal medications to increase her risk for dural venous sinus thrombosis, though this certainly is an etiology that has not been radiographically excluded. She had no evidence of vascular abnormality such as narrowing, dissection, or aneurysm on her previous studies. I considered metabolic and electrolyte derangements, anemia, kidney injury. The patient has no fever or nuchal rigidity to increase my concern for meningitis. Overall, I am reassured by the patient's hemodynamic stability and her intact neuro evaluation, and will provide her with meclizine and Zofran for initial management of symptoms. Will obtain laboratory studies to include CBC, CMP, magnesium, and hCG. After shared decision-making conversation with the patient regarding next steps and imaging, we will proceed with CTV of the head to evaluate for acute changes as well as dural venous sinus thrombosis. ED Course: I reviewed the patient's laboratory studies, which are most notable for mild hypomagnesemia to 1.5, up from 1.4 at her prior visit. The patient has been repleted her magnesium orally, will provide 2 g of intravenous repletion here in the emergency department. The remainder of her labs show no leukocytosis, anemia, thrombocytopenia, or other significant electrolyte derangements, evidence of kidney or liver dysfunction to account for her symptoms. Beta hCG negative. I independently reviewed and interpreted the CT head, and reviewed the radiology report, and the patient has no evidence of intracranial hemorrhage, mass effect, dural venous sinus thrombosis, or other abnormality to account for her symptoms. On reassessment, she remains without focal neuro deficit, states that her nausea is resolved after the Zofran, but her dizziness was exacerbated by lying in the CT scanner. We did attempt a dose of Valium for symptomatic management. Reports that the magnesium seems to improve her symptoms, and feels slightly be tter with the Valium. For this reason I prescribed a course of 7 oral Valium, 5 mg, every 8 hours as needed for breakthrough symptom management. Unfortunately, I was unable to E prescribe this medication, and so a paper prescription was handed to the patient with her discharge paperwork to fill at her convenience. Given the lack of diagnostic clarity, I recommended that the patient keep her scheduled EEG and follow-up neurology appointment to discuss her ongoing symptoms. She has access to Zofran, magnesium, and meclizine in the outpatient environment. At this time, the patient has had a full medical evaluation and is safe for discharge to home. They are hemodynamically stable, ambulatory, and tolerating PO. They are understanding of the follow-up plan and return precautions. They left our facility without incident. 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 Of note, the patient has had numerous episodes of vertiginous symptoms over the last month, for which she has not been evaluated several times. Over the course of the last month, her workup has included CTA head and neck that were without acute findings, MRI without that did not show any abnormalities, and laboratory studies that revealed hypomagnesemia which she is repleted orally. The patient had an incidental note of a mildly elevated lipase with no CT evidence for pancreatitis nor abdominal pain, vomiting, or other acute abdominal complaints. The patient reports that this episode of vertigo started on Thursday. Her dizziness is worse when she lays down, is sometimes exacerbated by looking sharply to the side, though this is unable to be reproduced on today's physical examination. She often feels nauseated but has not had vomiting. She has not had fevers or chills, trauma, changes in vision, or sensation of weakness or numbness in her body. She has not tried any medications in the home environment for management of the symptoms. She is not experiencing headache, states that she takes her daily migraine prevention medications without changes in her dosing. Exam: Gen: awake and alert, in no apparent distress. Appears well nourished. HEENT: PERRL, EOMs full and without nystagmus. External ears and nose normal, mucous membranes moist. Neck: Supple, full range of motion, no observable masses Lungs: No increased work of breathing CV: Heart with regular rate and rhythm Abdomen: Soft, nondistended, non-tended to palpation. No rigidity, rebound tenderness, or guarding. MSK: Full ROM without limitation, no external traumatic findings. Skin: No rashes or lesions to visualized skin. Normal color, warm, and dry. Neuro: Cranial nerves II-XII intact and symmetrical bilaterally. (Reduction in forehead wrinkling due to the patient's historical Botox treatments for migraine). 5/5 strength in all muscle groups x4 extremities, subjective sensation of weakness with flexion of the right thigh/hip. No sensory deficits. Ambulates with steady gait. Accurate targeting with [id number] and xjcx-bx-ucah testing Psych: Appropriate for situation. Related Data Home Medications ?Medication ?Instructions ?Recorded ?Confirmed carboxymethylcellulose sodium 0.5 1 drp ophthalmic (eye) 4-6XD PRN 10/12/18 01/28/24 % eye drops (Refresh Tears) levothyroxine 75 mcg tablet 100 mcg PO DAILY 10/12/18 01/28/24 metformin 500 mg tablet 1,000 mg PO BID 10/12/18 01/28/24 pantoprazole 20 mg tablet,delayed 20 mg PO BID 10/12/18 01/28/24 release triamcinolone acetonide 0.025 % 1 applic topical BID 10/12/18 01/28/24 topical cream semaglutide 0.25 mg or 0.5 mg (2 0.5 mg subcut QWEEK 04/16/21 01/28/24 mg/1.5 mL) subcutaneous pen injector atorvastatin 20 mg tablet 20 mg PO DAILY 01/06/24 01/28/24 onabotulinumtoxinA 200 unit 10 unit intradermal [id number] 01/06/24 01/28/24 solution for injection (Botox) verapamil 180 mg 24 hr 180 mg PO DAILY 01/06/24 01/28/24 capsule,extended release Allergies Allergy/AdvReac Type Severity Reaction Status Date / Time sumatriptan (From Imitrex) AdvReac Other (See Unverified 01/28/24 13:56 Comment) metals Allergy Itching Uncoded 01/28/24 13:56 onions Allergy Nausea Uncoded 01/28/24 13:56 General Stated Complaint: Dizzy/Sync ARCADIO: 4 Course Vital Signs Vital signs: Vital Signs Temperature 36.9 C 01/28/24 13:50 Pulse 78 01/28/24 13:50 Respiratory Rate 16 01/28/24 13:50 Blood Pressure 143/85 H 01/28/24 13:50 Temperature 36.9 C 01/28/24 13:50 Temperature Source Temporal Artery Scan 01/28/24 13:50 Pulse 78 01/28/24 13:50 Respiratory Rate 21 01/28/24 13:58 Respiratory Effort Normal, Non-Labored 01/28/24 14:01 Blood Pressure 143/85 H 01/28/24 13:50 Pain Level 0 01/28/24 13:50 Medical Decision Making Quality:SDOH Health Related Social Needs: No Data to Display PFSH All Active Problems (Updated 01/28/24 @ 15:54 by Carla Blood MD) Hypomagnesemia (Acute) Lactic acidosis (Acute) Dizziness of unknown cause (Acute) Migraine (Chronic) Medical History (Updated 01/28/24 @ 15:54 by Carla Blood MD) Migraine Diabetes Surgical History (Updated 04/16/21 @ 20:10 by Ruthie Noel DO) History of hernia repair Hx of cholecystectomy H/O section Social History Smoking/Tobacco Use Status: Never Smoking risk assessment performed?: Yes Alcohol Intake: current Alcohol Intake frequency: holidays/special occasions only Drug use: Never Substance use type: does not use Housing: house Do you feel safe at home: Yes Do you feel safe in your relationship?: Yes
--- NOTE | 2024-01-28 14:17 | DI.CT_ITS ---
Exam(s) CT HEAD WO/W EXAM: CT HEAD WO/W CLINICAL HISTORY: Vertigo, eval dural venous sinus thrombosis. TECHNIQUE: Imaging Protocol: Axial computed tomography images with coronal and sagittal reformatted images were created and reviewed. CONTRAST MATERIAL: Intravenous: Omnipaque 350 Contrast volume:100 ml COMPARISON: CT CT BRAIN NECK CTA from 01/06/2024 MR MR BRAIN WO from 01/22/2024 FINDINGS: Ventricles and Extra axial spaces: Normal in size and morphology for the patient's age. Hemorrhage: None. Cerebral parenchyma: Normal. Enhancement: No suspicious enhancement. No evidence dural venous sinus thrombosis. Dotgkn-gx-Pmipg s vasculature and branch vessels appears normal. Midline shift: None. Brainstem/Cerebellum: Normal. Calvarium: Normal. Visualized Paranasal sinuses/Mastoids: Clear. IMPRESSION: Normal CT scan of the head. No evidence of venous sinus thrombosis. RADIATION DOSE DELIVERED: Total DLP DATA REPOSITORY: All CT scans at this facility are submitted to the National Radiology Data Registry (NRDR) Dose Index Registry (DIR) with the [employer] (ACR). RADIATION OPTIMIZATION: All CT scans at this facility use at least one of these dose optimization te chniques: automated exposure control; mA and/or kV adjustment per patient size (includes targeted exa ms where dose is matched to clinical indication); or iterative reconstruction.
[2024-01-28 14:19] LABS: Abs Immature Grans 0.02 10^3/uL (0.0-0.06); Absolute Basophil Count 0.08 10^3/uL (0.0-0.2); Absolute Eosinophil Count 0.26 10^3/uL (0.0-0.7); Absolute Lymphocyte Count 2.28 10^3/uL (1.2-3.4); Absolute Monocyte Count 0.61 10^3/uL (0.1-0.8); Absolute Neutrophil Count 5.21 10^3/uL (1.2-6.7); Basophils % 0.9 %; Eosinophils % 3.1 %; HCT 40.9 % (36.0-46.0); HGB 13.6 g/dL (11.2-15.7); Immature Grans % 0.2 %; MCH 28.2 pg (27.0-33.0); MCHC 33.3 % (32.0-36.0); MCV 85 fL (80-95); MPV 8.5 fL (8.0-11.0); Monocytes % 7.2 %; Neutrophils % 61.6 %; Platelet Count 442 10^3/uL (130-400); RBC 4.82 10^6/uL (3.93-5.22); RDW 13.1 % (11.7-14.6); RDW-SD 40.2 fL; WBC 8.46 10^3/uL (4.4-10.8)
[2024-01-28] MEDS: Ondansetron 4 MG/2 ML VIAL IVP (14:22)
[2024-01-28] MEDS: Meclizine 25 MG TAB PO (14:22)
[2024-01-28] MEDS: Normal Saline Flush 10 ML SYR IVP ×2 (14:23→15:37)
[2024-01-28 14:34] LABS: ALT 37 U/L (14-59); AST 21 U/L (15-37); Albumin 3.8 g/dL (3.4-5.0); Alkaline Phosphatase 118 U/L (46-116); Anion Gap 10.3 mmol/L (3-11); BUN 9 mg/dL (7-18); Bilirubin, Total 0.31 mg/dL (0.2-1.0); CO2 27.7 mmol/L (21.0-32.0); CREATININE 0.8 mg/dL (0.55-1.02); Calcium 9.6 mg/dL (8.5-10.1); Chloride 101 mmol/L (98-107); Estimated GFR 91.97 (mL/min/1.73m2); Glucose 128 mg/dL (74-106); Magnesium 1.5 mg/dL (1.8-2.4); Potassium 3.9 mmol/L (3.5-5.1); Sodium 139 mmol/L (136-145); Total Protein 8.2 g/dL (6.4-8.2)
[2024-01-28] MEDS: MAGNESIUM SULFATE 2 GM/50 ML BAG IVINF (14:44)
[2024-01-28 14:52] LABS: HCG Qual (Serum) Negative
[2024-01-28] MEDS: diazePAM 10 MG/2 ML SYR 2 MG IVP (15:32)
[2024-01-28] MEDS: Normal Saline - Diluent 50 ML VIAL IJ (15:48)
[2024-01-28] MEDS: Omnipaque 350 MG/ML 100 ML BTL IJ (15:49)
== END 2024-01-28 16:53 | disposition home or self-care (01) ==
PROVIDERS: Emergency Provider Emergency Medicine; PCP Internal Medicine
DX: R42 Dizziness and giddiness (principal); G43.909 Migraine, unspecified, not intractable, without status migrainosus; E11.9 Type 2 diabetes mellitus without complications; E83.42 Hypomagnesemia; Z79.4 Long term (current) use of insulin; Z79.85 Long-term (current) use of injectable non-insulin antidiabetic drugs
CPT/HCPCS: 36415; 80053; 93005; 96365; 96366; 96375; 99285; 70470; 83735; 84703; 85025; 93010; 99284; J2405; J3360; J3475; J3490

== ENCOUNTER 2024-02-27 16:37 | Emergency (ER) | payer OTHER, SELFPAY ==
[2024-02-27 16:46] VITALS: BP 117/74; PULSE 95; RESP 16; TEMP 36.7; O2SAT 96
--- NOTE | 2024-02-27 17:00 | DI.RAD_ITS ---
Exam(s) XR KNEE LT 3V AP,LAT,HERNÁN EXAM: XR KNEE LT 3V AP,LAT,HERNÁN CLINICAL HISTORY: L knee pain. TECHNIQUE: 2D digital imaging was performed of the left knee. Three images were obtained. AP, late ral and PA tunnel views were obtained. COMPARISON: CR XR KNEE RT 4V AP,LAT,HERNÁN,PAT from 06/04/2022 FINDINGS: BONES: No acute fracture is present. No bony destructive lesion is seen. There is an enthesophyte at the superior patella. JOINTS: The knee is normally aligned. No joint effusion is seen. No loose body. SOFT TISSUE: Normal. IMPRESSION: No acute abnormality. DATA REPOSITORY: RADIATION DOSE DELIVERED:
--- NOTE | 2024-02-27 18:27 | ED.GENADUL_ITS ---
Discharge Plan Disposition Patient Disposition: Home Condition: Stable Discharge Details Clinical Impression: Left knee pain Primary Care Provider: [facility],[place] ED Provider: Guillermo Leal Home Meds and New Rx's Prescriptions: Continued verapamil 180 mg capsule,ext rel. pellets 24 hr 180 mg PO DAILY atorvastatin 20 mg tablet 20 mg PO DAILY Botox 200 unit recon soln 10 unit intradermal [id number] metformin 500 mg Tablet 1,000 mg PO BID pantoprazole 20 mg Tablet,Delayed Release (Dr/Ec) 20 mg PO BID levothyroxine 75 mcg Tablet 100 mcg PO DAILY triamcinolone acetonide 0.025 % Cream 1 applic TOPICAL BID carboxymethylcellulose sodium [Refresh Tears] 0.5 % Drops 1 drp OPHTHALMIC (EYE) 4-6XD PRN semaglutide 0.25 mg or 0.5 mg(2 mg/1.5 mL) Pen Injector 0.5 mg SUBCUT QWEEK Discharge Instructions Instructions: Knee Pain ED Additional Instructions: You were seen in the emergency department for intermittent left knee instability and pain, you have pain in the area of the suprapatellar bursa and I suspect 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 There is no fracture or knee effusion seen and you have no ligamentous laxity on exam. Please follow-up with outpatient orthopedic visits whether this from the [place] or our orthopedic office please talk to your primary care provider. Please use a neoprene knee cuff, rest, ice, compress and elevate the knee often for any intermittent pains, use [id number] analgesics like Tylenol and ibuprofen for adequate pain relief. Please return for any unilateral leg swelling, redness and warmth to touch to the knee, complete numbness distal, inability to ambulate. Referrals: [facility] [Provider Group] [place], [place] [Primary Care Provider] - Discharge Data Discharge Date/Time-TO BE ENTERED AT DEPARTURE: 02/27/24 19:06 HPI General Date/Time Provider Initiated Documentation: 02/27/24 17:02 . HPI Narrative: 48 year-old female presents to ED today by POV/ambulating with her daughter with a chief complaint of L knee instability, occasional pains with onset around February 09 from normal ambulation, felt a sudden instability. Quality described as occasional pain to the suprapatellar area, no radiation to inability to ambulate, persistent complete instability or buckling, skin changes, unilateral leg swelling, hip pain, ankle pain. Severity is described as moderate. Palliating factors include intermittent OTC analgesics. Provoking factors include nothing specific. Patient not anticoagulated. Related Data Home Medications ?Medication ?Instructions ?Recorded ?Confirmed carboxymethylcellulose sodium 0.5 1 drp ophthalmic (eye) 4-6XD PRN 10/12/18 02/27/24 % eye drops (Refresh Tears) levothyroxine 75 mcg tablet 100 mcg PO DAILY 10/12/18 02/27/24 metformin 500 mg tablet 1,000 mg PO BID 10/12/18 02/27/24 pantoprazole 20 mg tablet,delayed 20 mg PO BID 10/12/18 02/27/24 release triamcinolone acetonide 0.025 % 1 applic topical BID 10/12/18 02/27/24 topical cream semaglutide 0.25 mg or 0.5 mg (2 0.5 mg subcut QWEEK 04/16/21 02/27/24 mg/1.5 mL) subcutaneous pen injector atorvastatin 20 mg tablet 20 mg PO DAILY 01/06/24 02/27/24 onabotulinumtoxinA 200 unit 10 unit intradermal [id number] 01/06/24 02/27/24 solution for injection (Botox) verapamil 180 mg 24 hr 180 mg PO DAILY 01/06/24 02/27/24 capsule,extended release Allergies Allergy/AdvReac Type Severity Reaction Status Date / Time sumatriptan (From Imitrex) AdvReac Other (See Unverified 02/27/24 16:50 Comment) metals Allergy Itching Uncoded 02/27/24 16:50 onions Allergy Nausea Uncoded 02/27/24 16:50 General Stated Complaint: Orthopedic ARCADIO: 4 Review of Systems All systems reviewed & are unremarkable except as noted in HPI and below Exam Narrative Exam Narrative: GENERAL APPEARANCE: Well-nourished, non-toxic, awake and alert, atraumatic, no acute distress. SKIN: Warm, pink, dry, intact, without rashes/lesions/ulcerations. HEAD: Normocephalic, atraumatic, normal hair distribution for gender/age. EYES: Normal conjunctiva, no exudates on lids/lashes. ENT: Nares patent, no circumoral cyanosis, no facial swelling NECK: Supple, trachea midline, painless cervical ROM. LUNGS/CHEST: Non-labored respirations, normal A/P diameter, symmetrical expansion, no chest wall deformity HEART (CV/PV): Regular rate, no peripheral edema, no JVD. ABDOMEN: Soft, non-distended, no guarding. MSK: Normal ROM, no swelling/deformity to bilateral UEs or LEs, moving all extremities without weakness, no cyanosis, spine midline without tenderness, normal curvature. L KNEE: Mild tenderness around the suprapatellar area, patella mobile, no crepitus, no ligamentous laxity with varus valgus forces or anterior drawer/Gilbert, Mohit negative, no unilateral leg swelling, no skin changes distally, Homans negative, neurovascular intact distal NEURO: Mental Status AAOx4 - alert to person, place, time, events No facial droop, no forehead involvement. Motor: No focal weakness - strength 5/5 in bilateral UEs and LEs, proximal and distal, symmetric. Sensory: sensation intact to light touch globally. Gait normal: patient ambulated without ataxia into ED room. PSYCH: euthymic, cooperative, pleasant, appropriate speech Course Vital Signs Vital signs: Vital Signs Temperature 36.7 C 02/27/24 16:46 Pulse 95 H 02/27/24 16:46 Respiratory Rate 16 02/27/24 16:46 Blood Pressure 117/74 02/27/24 16:46 Pulse Oximetry 96 02/27/24 16:46 Temperature 36.7 C 02/27/24 16:46 Pulse 95 H 02/27/24 16:46 Respiratory Rate 16 02/27/24 16:46 Blood Pressure 117/74 02/27/24 16:46 Pulse Oximetry 96 02/27/24 16:46 Pain Level 6 02/27/24 16:46 Medical Decision Making This dictation utilizes [id number]-maow dictation software and may contain unedited grammatical errors. 48 year-old female presents to ED today by POV/ambulating with her daughter with a chief complaint of L knee instability, occasional pains with onset around February 09 from normal ambulation, felt a sudden instability. Quality described as occasional pain to the suprapatellar area, no radiation to inability to ambulate, persistent complete instability or buckling, skin changes, unilateral leg swelling, hip pain, ankle pain. Severity is described as moderate. Palli ating factors include intermittent OTC analgesics. Provoking factors include nothing specific. Patients' medical history: Diabetes, migraine. 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 Pertinent exam findings / vital signs include Mohit negative, anterior drawer without laxity, some intermittent tenderness during exam to suprapatellar area, patella mobile. Differential / pathologies of concern include arthritis, unlikely fracture, possible internal knee injury, tendinitis/bursitis. Diagnostic studies of: -XR L knee-no acute fracture or effusion. Interventions of: -Recommend outpatient orthopedic follow-up and neoprene knee bracing, daily RICE therapy and adequate dosing Tylenol and ibuprofen. ED Course/Assessment/Plan: 48-year-old female presents with intermittent knee instability and pain from a slight incident of buckling during normal ambulation on at least February 09. 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 Findings not consistent with fracture, neurovascular compromise, DVT, septic arthritis. Disposition of left knee pain. Patient verbalized understanding of the plan and return to ED criteria and engaged in shared decision making. Medical Records Medical records reviewed: Yes I reviewed the patient's medical records. Imaging Data Radiologic Study: Attestation: I personally reviewed and interpreted this imaging study as follows: Imaging: X-Ray Radiologist's impression: EXAM: XR KNEE LT 3V AP,LAT,HERNÁN CLINICAL HISTORY: L knee pain. TECHNIQUE: 2D digital imaging was performed of the left knee. Three images were obtained. AP, lateral and PA tunnel views were obtained. COMPARISON: CR XR KNEE RT 4V AP,LAT,HERNÁN,PAT from 06/04/2022 FINDINGS: BONES: No acute fracture is present. No bony destructive lesion is seen. There is an enthesophyte at the superior patella. JOINTS: The knee is normally aligned. No joint effusion is seen. No loose body. SOFT TISSUE: Normal. IMPRESSION: No acute abnormality. Quality:SDOH Health Related Social Needs: No Data to Display PFSH All Active Problems (Updated 02/28/24 @ 00:05 by ROSALIA SETH) Left knee pain (Acute) Migraine (Chronic) Medical History (Updated 02/28/24 @ 00:05 by ROSALIA SETH) Migraine Diabetes Surgical History (Updated 04/16/21 @ 20:10 by Ruthie Noel DO) History of hernia repair Hx of cholecystectomy H/O section Social History Smoking/Tobacco Use Status: Never Smoking risk assessment performed?: Yes Alcohol Intake: current Alcohol Intake frequency: holidays/special occasions only Drug use: Never Substance use type: does not use Housing: house Do you feel safe at home: Yes Do you feel safe in your relationship?: Yes
[2024-02-27 18:59] VITALS: BP 132/78; PULSE 68; RESP 16; O2SAT 98
== END 2024-02-27 19:06 | disposition home or self-care (01) ==
PROVIDERS: Emergency Provider Physician Assistant
DX: M25.562 Pain in left knee (principal)
CPT/HCPCS: 73562; 80053; 99283; 85025

== ENCOUNTER 2024-07-05 02:29 | Outpatient (CLI) | payer OTHER, SELFPAY ==
--- NOTE | 2024-07-05 | DI.MAMMO_ITS ---
Exam(s) MAMMO SCREENING EXAM: MAMMO SCREENING CLINICAL HISTORY: SCREENING MAMMO Z12.31 ANNUAL SCREENING,[id number] TECHNIQUE: Mammograms were interpreted according to the usual protocol including computer analysis w ith CAD system, tomosynthesis and C-view imaging. COMPARISON: None. FINDINGS: The breasts are composed of heterogeneously dense fibroglandular densities, Breast Density category C . No suspicious masses or suspicious microcalcifications are seen. No skin thickening or abnormal axillary lymph nodes are seen. In the left breast, there are 2 areas circumscribed nodularity, 1 located laterally on the CC view in the other located centrally on the CC view. In the right breast, there also nodule seen laterally as well medially in the posterior breast. Spot compression views and ultrasound are requested for both breasts. IMPRESSION: BI-RADS Category 0 - Incomplete: Need additional imaging evaluation Breast Density Category C, heterogeneously Dense. The mammogram demonstrates the patient's breast tissue is dense. Dense breast tissue is very common a nd is not abnormal but dense breast tissue can make it harder to find cancer on a mammogram. Also, de nse breast tissue may increase breast cancer risk. This information about the result of the mammogram report was provided to the patient to raise their awareness. Use this report when you speak with the patient about their risks for breast cancer, which includes their family history. At that time, you may recommend additional screening tests (Ultrasound or MRI) as they might be useful based on their r isk. A negative radiographic report should not delay biopsy if a dominant or clinically suspicious mass is present. Up to ten percent of cancers are not identified on mammography. A negative report may reinforce clinical impression. Adenosis and dense breasts may obscure an underlying neoplasm. False positive reports average 6 to 10%.
--- NOTE | 2025-07-07 | DI.US_ITS ---
Exam(s) US BREAST LT COMPLETE US BREAST RT COMPLETE MG MAMMO DIAGNOSTIC BI EXAM: MG MAMMO DIAGNOSTIC BI AND BILATERAL COMPLETE BREAST ULTRASOUND CLINICAL HISTORY: 6 MO F/U, F/U ABNL MAMMO, DUE FOR BILATERAL, [id number]. TECHNIQUE: BILATERAL CC AND MLO mammographic images were obtained with 3D tomosynthesis technique and utilizing computer aided detection (CAD). BILATERAL COMPLETE BREAST ULTRASOUND was performed including all 4 quadrants both breasts as well as both axillary regions. COMPARISON: Prior mammograms were reviewed, as were prior ultrasound examinations of September and November 2024. This patient was sent for breast MRI at [facility] following the last breast imaging appointment here. This was performed on 03/30/2025. This report was reviewed by myself. It is being scanned into her [facility] breast file today. FINDINGS: DIAGNOSTIC BILATERAL MAMMOGRAM: The fibroglandular tissue pattern is again noted to be heterogeneously dense. In the left breast there is again noted a lobulated noncalcified nodule inferolaterally measuring 11 by 7 mm, unchanged from the mammogram of June 2024 (there are none prior to that date). It also corresponds to finding at the 4 o'clock position on ultrasound as well as finding at 4 o'clock position on the outside breast MRI study (called a fibroadenoma). There are no malignant- appearing microcalcification groups in this region or elsewhere in either breast. In the right breast on the CC view there is again noted a lobulated noncalcified nodular density located 10 cm in from the nipple cysts, slightly medial of center, unchanged from mammogram of June 2024. Probably represents a benign intramammary lymph node given its appearance and lack of change. There are no new spiculated masses nor new malignant-appearing microcalcification groups in either breast. There is no new architectural distortion or skin thickening-retraction. BILATERAL COMPLETE BREAST ULTRASOUND: RIGHT BREAST ULTRASOUND: There are benign-appearing microcysts at the 1 o'clock and 5 o'clock positions as well as at the 10 o'clock position. At the 8 o'clock position there is a septated benign-appearing microcyst measuring 5 mm. At the 11 o'clock position there is benign-appearing hemorrhagic microcyst measuring 3-4 mm. Scanning of the right axilla is negative for significant adenopathy. LEFT BREAST ULTRASOUND: There are microcysts and conglomeration microcysts at the 12 o'clock, 1 o'clock, 2 o'clock, 8 o'clock positions. At the 4 o'clock position there is again noted the previously described wider than taller solid lobulated nodule which exhibits neutral through transmission and which corresponds to the finding on today's mammogram (and is also unchanged in size when compared to the June 2024 mammo) and which also corresponds to what is described at this position as a fibroadenoma on the recent [facility] MRI. There is no obvious finding on ultrasound to correspond to the benign appearing and unchanged nodule seen medial of center on the right breast mammogram (also unchanged from June 2024 mammogram). Scanning of the left axilla is negative for significant adenopathy. IMPRESSION: 1. Stable benign-appearing bilateral findings on mammography, unchanged from the baseline mammogram of June 2024. 2. 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 3. Appropriate follow-up, as discussed by myself with the patient today, is repeat mammogram and breast ultrasound in 6 months to ensure stability of this left breast finding at the three-four o'clock position. As I explained to the patient, we must established this as being stable for 2 years on an every six- month basis. The patient was informed of the findings and follow-up recommendations by myself prior to leaving the department today. BI-RADS Category 3 - 6 month - Probably Benign Finding: Recommend follow-up mammography in 6 months Breast Density - Category C - The breast are heterogeneously dense, which may obscure small masses. Breast density Category C or D implies that the patient has dense breast tissue. Dense breast tissue can make it harder to find cancer on a mammogram. Dense breast tissue is also associated with an increased risk of breast cancer. This information about the result of the mammogram report was provided to the patient to raise their awareness. Use this report when you speak with the patient about their risks for breast cancer, which includes their family history. At that time, you may recommend additional screening tests (Ultrasound or MRI) as these tests may add significant information. A negative radiographic report should not delay biopsy if a dominant or clinically suspicious mass is present. Up to ten percent of cancers are not identified on mammography. A negative report may reinforce clinical impression. Adenosis and dense breasts may obscure an underlying neoplasm. False positive reports average 6 to 10%. Patient will receive a letter notifying them of these results.
== END 2024-07-05 02:49 ==
PROVIDERS: Visit Provider Internal Medicine
DX: Z12.31 Encounter for screening mammogram for malignant neoplasm of breast (principal); R92.333 Mammographic heterogeneous density, bilateral breasts
CPT/HCPCS: 77063; 77067

== ENCOUNTER 2024-10-11 02:23 | Outpatient (CLI) | payer OTHER, SELFPAY ==
--- NOTE | 2024-10-11 09:40 | DI.MAMMO_ITS ---
Exam(s) US BREAST LT COMPLETE US BREAST RT COMPLETE MG MAMMO SCREEN CALL BACK BI EXAM: MG MAMMO SCREEN CALL BACK BI and bilateral breast ultrasound complete CLINICAL HISTORY: Auth:[id number] LT Breast 2 areas circumscribed Nodularity 1 Lat, 1 Cent. TECHNIQUE: Craniocaudal and mediolateral oblique Full Field Digital Mammography views of the bilater al breast with Computer Aided Diagnosis followed by Tomosynthesis and complete bilateral breast ultra sound. All 4 quadrants of both breast were evaluated sonographically. The axilla and retroareolar r egions were also interrogated sonographically. COMPARISON: Comparison is made with the patient's baseline examination. FINDINGS: Mammography/Tomosynthesis: Masses/Architectural Distortion: The nodular densities noted were less prominent on the additional vi ews. The nodule in the medial aspect of the right breast persisted. There are no areas of architectural engineering teacher ural distortion. Microcalcifictions: No suspicious pleomorphic-type are seen. Skin Thickening/Nipple Retraction: None. Bilateral complete breast US: Echotexture: Normal appearance of the glandular tissue. Shadowing: No suspicious foci. Cyst: In the right breast, there is a 0.5 x 0.3 x 0.5 cm cyst at the 8 o'clock position 10 cm from th e nipple. This would appear to correspond to the mammographic abnormality. There is a 0.5 x 0.3 x 0 .5 cm cyst at the 2 o'clock position of the right breast 8 cm from the nipple. In the left breast, t here is a 0.7 x 0.3 x 0.4 cm cyst in the retroareolar region which would appear to correspond to the mammographic abnormality. Solid lesions: In the left breast, there is a question of a 1.2 cm hypoechoic lesion at the 3 o'clock position of the left breast 8 cm from the nipple. This may be normal fibroglandular tissue. Ductal dilation: None. IMPRESSION: 1. Question of a hypoechoic lesion versus normal fibroglandular tissue at the 3 o'clock position of t he left breast 8 cm from the nipple. A repeat left breast ultrasound in 1-2 months is recommended fo r re-evaluation. Alternatively, an MRI of the breast may be obtained for further characterization. 2. Simple cysts are seen in the right breast. No follow-up is recommended. 3. The findings were discussed with the patient on the date of the examination. BI-RADS Category 0 - Incomplete: Need additional imaging evaluation Probably Benign Finding: Recommend follow-up left breast ultrasound in 1-2 months Breast Density - Category C - Heterogeneously dense Breast density Category C or D implies that the patient has dense breast tissue. Dense breast tissue can make it harder to find cancer on a mammogram. Dense breast tissue is also associated with an incr eased risk of breast cancer. This information about the result of the mammogram report was provided to the patient to raise their awareness. Use this report when you speak with the patient about their risks for breast cancer, which includes their family history. At that time, you may recommend additional screening tests (Ultrasoun d or MRI) as these tests may add significant information. A negative radiographic report should not delay biopsy if a dominant or clinically suspicious mass is present. Up to ten percent of cancers are not identified on mammography. A negative report may reinforce clinical impression. Adenosis and dense breasts may obscure an underlying neoplasm. False positive reports average 6 to 10%. Patient will receive a letter notifying them of these results.
== END 2024-10-11 02:43 ==
PROVIDERS: PCP Internal Medicine; Visit Provider Internal Medicine
DX: Z12.31 Encounter for screening mammogram for malignant neoplasm of breast (principal); R92.333 Mammographic heterogeneous density, bilateral breasts
CPT/HCPCS: 76642; 77063; 77067

== ENCOUNTER 2025-02-18 12:45 | Observation (INO) | payer OTHER, SELFPAY ==
[2025-02-18] VITALS (31 sets, daily range): BP systolic 108–138; BP diastolic 58–84; PULSE 77–117; RESP 13–25; TEMP 36.4–36.8; O2SAT 94–100
--- NOTE | 2025-02-18 12:45 | RT.EKG_ITS ---
APPROVED REPORT Exam: Resting ECG Reason for Exam: dizzy Patient Location: E HR:88 bpm ECG Measurements Heart Rate 88 AXIS MO 164 P 8 QRSd 83 QRS 17 QT 354 T 2 QTc 429 Conclusion Sinus rhythm...normal P axis, V-rate 60- 99 No Occlusion AK
--- NOTE | 2025-02-18 13:00 | W.ED.GENAD ---
Discharge Plan Disposition Patient Disposition: Admit to [facility] Discharge Details Clinical Impression: Abnormal Romberg test, Dizziness Primary Care Provider: Melani [place] ED Provider: Willie Lilly [place] Meds and New Rx's Prescriptions: No Action verapamil 180 mg capsule,ext rel. pellets 24 hr 180 mg PO DAILY atorvastatin 20 mg tablet 20 mg PO DAILY Botox 200 unit recon soln 10 unit intradermal [id number] magnesium 1 tab PO DAILY Aimovig Autoinjector 70 mg/mL auto-injector 140 mg subcut QMONTH famotidine 20 mg tablet 20 mg PO DAILY meclizine [Antivert] 25 mg tablet,chewable 25 mg PO DAILY progesterone 100 mg PO DAILY metformin 500 mg Tablet 1,000 mg PO BID pantoprazole 20 mg Tablet,Delayed Release (Dr/Ec) 20 mg PO BID levothyroxine 75 mcg Tablet 100 mcg PO DAILY triamcinolone acetonide 0.025 % Cream 1 applic TOPICAL BID carboxymethylcellulose sodium [Refresh Tears] 0.5 % Drops 1 drp OPHTHALMIC (EYE) 4-6XD PRN semaglutide 0.25 mg or 0.5 mg(2 mg/1.5 mL) Pen Injector 0.5 mg SUBCUT QWEEK HPI General Date/Time Provider Initiated Documentation: 02/18/25 13:00. HPI Narrative: MDM This is an overall very well-appearing normothermic and not tachycardic 49-year-old female with truncal ataxia concerning for possibility of acute CVA versus atypical migraine for which patient will undergo CT angiogram of her brain and neck prior to neurological consultation. No pain or proportion to suggest necrotizing soft tissue infection. In the absence of any nystagmus I did not applied the HINTS exam. No recent chiropractic manipulation to suggest increased risk for cervical arterial dissection. No tonic-clonic activity to suggest benefit to EEG. No nuchal rigidity nor fevers to suggest meningitis so no indication for lumbar puncture. In the absence of significant headache I am not suspicious for idiopathic intracranial hypertension so I did not feel patient required a lumbar puncture. Not altered to suggest encephalitis. Patient has not been vomiting nor had any recent URI symptoms so my suspicion is low for subdural empyema. She has good range of motion in her neck so I am not suspicious for retropharyngeal abscess. No rash to suggest zoster. Given her diabetes we will obtain assessment of electrolytes. No head strike nor sudden onset headache so my suspicion for subarachnoid hemorrhage is low. Patient is on hormone replacement therapy though my suspicion is low for cerebral venous sinus thrombosis in the absence of headache. Will reassess following labs and imaging to include chest x-ray though in the absence of chest pain my suspicion low for aortic dissection. 1:51 PM Urine test negative. Urinalysis nitrite leukoesterase negative. 2:20 PM CBC lacks anemia and thrombocytopenia leukocytosis. 2:30 PM Initial reassuring troponin. Basic metabolic panel showing very mild hyperglycemia but no anion gap. Normal bicarbonate?test not consistent with DKA. No RIRI. 3 PM I spoke with Dr. Almaraz from neurology. He evaluated the patient. He felt that the patient could benefit from hospitalization for symptom management versus outpatient follow-up with MRI. I advised him that we did not have MRI available until Thursday. He did not feel that the patient required tertiary care transfer as he did not feel that the patient was having an acute stroke nor with the patient be a candidate for lytics. He did not feel the patient required an EEG nor a lumbar puncture. I met with the patient. She felt improved. She had been reading on an electronic device. She had received 500 cc of crystalloid. Will attempt ambulatory trial and reassess. 3:07 PM Patient attempted to ambulate. She felt markedly unsteady with persistent dizziness for which I treated her with IV diazepam. Given her persistent unsteadiness and her need for IV medications we will await final read on her CTA head and neck and reach out to the hospitalist with request for hospitalization. 3:[address] angiogram with no large vessel occlusion or significant stenoses. Reassuring repeat troponin normal delta. 3:58 PM I was in touch w/Dr. Hale who graciously agreed to accept that patient for hospitalization. HPI This is a patient with a history of diabetes presenting with dizziness. The patient reports experiencing dizziness upon waking up at 8:30 AM this morning. She initially attributed the sensation to a dream, describing it as foggy and amalia to walking through water or concrete. Despite returning to bed to rest, her symptoms did not improve. She took meclizine, a medication prescribed about a year ago for similar symptoms. After breakfast, she attempted to brush her teeth and wash her face but found these tasks challenging due to a fear of falling. Her symptoms worsened when she visited a house they are currently cleaning and remodeling, making standing, walking, and coherent speech difficult. She reports feeling slightly better now but still experiences dizziness when moving or turning her head, particularly to the left. She has not vomited today but feels nauseous. The patient reports no trouble breathing, chest pain, stomach pain, or burning during urination. She has not recently visited a chiropractor nor been around a given no generator exposure my suspicion for carbon oxide toxicity is low. Generator. She is not on any blood thinners. The patient also mentions feeling unwell on 02/16/2025 with stomach discomfort, vomiting, and diarrhea. On 02/17/2025, she experienced cramping but no diarrhea. As a diabetic, she ate breakfast thinking she might be hungry. She is perimenopausal and has started taking progesterone. Exam General: Well-appearing in no acute distress speaking in complete sentences. Supportive daughter playing on electronic device at bedside. Head: Normocephalic, atraumatic. Eye:[Pupils equal, round reactive to light.] Extraocular eye movements intact. No conjunctival injection. No scleral icterus. Ear, nose, mouth, throat: Grossly normal inspection. Normal voice, handling secretions normally. Neck: Trachea midline. Cardiovascular: Well-perfused distal extremities. Respiratory: Nonlabored respiration. Gastrointestinal: Nondistended abdomen. Musculoskeletal: No edema. Moving all 4 extremities spontaneously. Skin: Normal for age and race, grossly normal temperature and turgor. No acute rash. Neurologic: Alert and appropriate, no apparent acute deficits. GCS 15. Cranial nerves II through XII intact grossly. No significant nystagmus. 5 out of 5 bilateral upper and lower extremity strength. No dysmetria. Patient does have positive Romberg. Psychiatric: Mood and manner are appropriate. Grooming and personal hygiene are appropriate. Related Data Home Medications ?Medication ?Instructions ?Recorded ?Confirmed carboxymethylcellulose sodium 0.5 1 drp ophthalmic (eye) 4-6XD PRN 10/12/18 02/18/25 % eye drops (Refresh Tears) levothyroxine 75 mcg tablet 100 mcg PO DAILY 10/12/18 02/18/25 metformin 500 mg tablet 1,000 mg PO BID 10/12/18 02/18/25 pantoprazole 20 mg tablet,delayed 20 mg PO BID 10/12/18 02/18/25 release triamcinolone acetonide 0.025 % 1 applic topical BID 10/12/18 02/18/25 topical cream semaglutide 0.25 mg or 0.5 mg (2 0.5 mg subcut QWEEK 04/16/21 02/18/25 mg/1.5 mL) subcutaneous pen injector atorvastatin 20 mg tablet 20 mg PO DAILY 01/06/24 02/18/25 onabotulinumtoxinA 200 unit 10 unit intradermal [id number] 01/06/24 02/18/25 solution for injection (Botox) verapamil 180 mg 24 hr 180 mg PO DAILY 01/06/24 02/18/25 capsule,extended release erenumab-aooe 70 mg/mL 140 mg subcut QMONTH 02/18/25 02/18/25 subcutaneous auto-injector (Aimovig Autoinjector) famotidine 20 mg tablet 20 mg PO DAILY 02/18/25 02/18/25 magnesium 1 tab PO DAILY 02/18/25 02/18/25 meclizine 25 mg chewable tablet 25 mg PO DAILY 02/18/25 02/18/25 (Antivert) progesterone 100 mg PO DAILY 02/18/25 02/18/25 Allergies Allergy/AdvReac Type Severity Reaction Status Date / Time sumatriptan (From Imitrex) AdvReac Other (See Verified 02/18/25 12:55 Comment) metals Allergy Itching Uncoded 02/18/25 12:55 onions Allergy Nausea Uncoded 02/18/25 12:55 General Stated Complaint: Dizzy/Sync ARCADIO: 3 Course Vital Signs Vital signs: Vital Signs Temperature 36.7 C 02/18/25 12:48 Pulse 86 02/18/25 12:48 Respiratory Rate 16 02/18/25 12:48 Blood Pressure 112/78 02/18/25 12:48 Pulse Oximetry 96 02/18/25 12:48 Temperature 36.7 C 02/18/25 12:48 Temperature Source Oral 02/18/25 12:48 Pulse 86 02/18/25 12:48 Respiratory Rate 16 02/18/25 12:48 Blood Pressure 112/78 02/18/25 12:48 Blood Pressure Position Sitting 02/18/25 12:48 Pulse Oximetry 96 02/18/25 12:48 Oxygen Delivery Method Room Air 02/18/25 12:48 Oxygen Flow Rate 0 02/18/25 12:48 Pain Level 0 02/18/25 12:48 PFSH All Active Problems (Updated 02/18/25 @ 15:08 by Willie Lilly MD) Dizziness (Acute) Abnormal Romberg test (Acute) Migraine (Chronic) Medical History Migraine Diabetes Surgical History History of hernia repair Hx of cholecystectomy H/O section Social History Smoking/Tobacco Use Status: Never Smoking risk assessment performed?: Yes Alcohol Intake: current Alcohol Intake frequency: holidays/special occasions only Drug use: Never Substance use type: does not use Housing: house Do you feel safe at home: Yes Do you feel safe in your relationship?: Yes
--- NOTE | 2025-02-18 13:37 | DI.CT_ITS ---
Exam(s) CT BRAIN NECK CTA EXAM: CT BRAIN NECK CTA CLINICAL HISTORY: Dizziness. TECHNIQUE: Imaging Protocol: Axial CT angiography was performed with multi- slice acquisition and multi-planar and/or 3D reconstructions. CONTRAST MATERIAL: Intravenous: Omnipaque 350 contrast volume:70 mL COMPARISON: CT CT BRAIN NECK CTA from 01/06/[address] HEAD WO/W from 01/28/2024 FINDINGS: CT Head W/O and W: Ventricles and Extra axial spaces: Normal in size and morphology for the patient's age. Hemorrhage: None. Cerebral parenchyma: There is a normal montoya-white matter differentiation. No evidence of an acute territorial infarct is seen. Midline shift: None. Brainstem/Cerebellum: Normal. Calvarium: Normal. Visualized Paranasal sinuses/Mastoids: Clear. Soft Tissues: Unremarkable. Enhancement: Unremarkable. CTA Neck W: Common Carotid: Right: No dissection, occlusion or significant stenosis. Left: No dissection, occlusion or significant stenosis. External Carotid: Right: No occlusion or significant stenosis. Left: No occlusion or significant stenosis. Internal Carotid: Right: No dissection, occlusion or significant stenosis. Left: No dissection, occlusion or significant stenosis. Vertebral Artery: Right: No dissection, occlusion or significant stenosis. Left: No dissection, occlusion or significant stenosis. Lung Apices: Normal. Bones: Within normal limits for the patient's age. Soft Tissues: Normal. Thyroid gland: Unremarkable. CTA Brain W: Internal Carotid Arteries: There is no evidence of an aneurysm, occlusion or significant stenosis. Anterior Cerebral Arteries: Right: No aneurysm, occlusion or significant stenosis. Left: No aneurysm, occlusion or significant stenosis. Middle Cerebral Arteries: Right: No aneurysm, occlusion or significant stenosis. Left: No aneurysm, occlusion or significant stenosis. Posterior Cerebral Arteries: Right: No aneurysm, occlusion or significant stenosis. Left: No aneurysm, occlusion or significant stenosis. Vertebral Arteries: Right: No aneurysm, occlusion or significant stenosis. Left: No aneurysm, occlusion or significant stenosis. Basilar Artery: No aneurysm, occlusion or significant stenosis. IMPRESSION: 1. No large vessel occlusion or significant stenosis on the CT angiography of the head. 2. No acute intracranial process. 3. No occlusion or significant stenosis on the CT angiography of the neck. RADIATION DOSE DELIVERED: 2,239.41mGy.cm Total DLP DATA REPOSITORY: All CT scans at this facility are submitted to the National Radiology Data Registry (NRDR) Dose Index Registry (DIR) with the [employer] (A[employer]). RADIATION OPTIMIZATION: All CT scans at this facility use at least one of these dose optimization techniques: automated exposure control; mA and/or kV adjustment per patient size (includes targeted exams where dose is matched to clinical indication); or iterative reconstruction.
[2025-02-18 13:47] LABS: Glucose Negative (Negative)
[2025-02-18] MEDS: Normal Saline 500 ML IV (13:56)
--- NOTE | 2025-02-18 13:58 | DI.RAD_ITS ---
Exam(s) XR CHEST 2V PA LATERAL EXAM: XR CHEST 2V PA LATERAL CLINICAL HISTORY: Dizziness TECHNIQUE: 2D digital imaging was performed of the chest. Two images were obtained. PA and lateral views were obtained. COMPARISON: CR XR CHEST 2V PA LATERAL from 10/12/2018 CR XR PORTABLE CHEST AP from 08/07/2023 FINDINGS: There is poor inspiration. MEDIASTINUM: Normal. HEART: Normal. PULMONARY VASCULATURE: Normal. LUNGS: Clear. PLEURAL SPACE: No pleural effusion or pneumothorax. BONE:Within normal limits for the patient's age. OTHER FINDINGS:Normal. IMPRESSION: No acute pulmonary findings. DATA REPOSITORY: RADIATION DOSE DELIVERED:
[2025-02-18 14:01] LABS: Abs Immature Grans 0.02 10^3/uL (0.0-0.06); HCT 40.5 % (36.0-46.0); HGB 13.3 g/dL (11.2-15.7); Immature Grans % 0.2 %; MCH 27.4 pg (27.0-33.0); MCHC 32.8 % (32.0-36.0); MCV 83 fL (80-95); MPV 8.7 fL (8.0-11.0); Platelet Count 441 10^3/uL (130-400); RBC 4.86 10^6/uL (3.93-5.22); RDW 13.2 % (11.7-14.6); RDW-SD 40.3 fL; WBC 8.07 10^3/uL (4.4-10.8)
[2025-02-18] MEDS: Normal Saline - Diluent 50 ML VIAL IJ (14:10)
[2025-02-18] MEDS: Omnipaque 350 MG/ML 100 ML BTL IJ (14:11)
[2025-02-18] MEDS: Normal Saline Flush 10 ML SYR IVP ×4 (14:12→21:01)
[2025-02-18 14:18] LABS: Anion Gap 8.1 mmol/L (3-11); BUN 7 mg/dL (7-18); CO2 26.9 mmol/L (21.0-32.0); Calcium 9.5 mg/dL (8.5-10.1); Chloride 105 mmol/L (98-107); Estimated GFR 91.40 (mL/min/1.73m2); Glucose 136 mg/dL (74-106); Potassium 3.8 mmol/L (3.5-5.1); Sodium 140 mmol/L (136-145); Troponin I 7 ng/L (<or=51)
[2025-02-18] MEDS: diazePAM 10 MG/2 ML SYR 5 MG IVP (15:12)
[2025-02-18 15:19] LABS: Troponin I 7 ng/L (<or=51)
--- NOTE | 2025-02-18 15:56 | W.PM.HP.N ---
Date of service: 02/18/25 Time of Service: 15:56 Assessment and Plan Assessment and plan (1) Dizziness: Status: Acute Assessment and plan: Head / Neck CTa negative Orthostatic VS in the setting of dizziness and tachycardia( HR 99-110) at rest in the ED - Slow IVF Labs in AM PT consult Meclizine (2) Migraine: Status: Chronic Assessment and plan: On monthly and trimestrial injections at home Ongoing therapy with verapamil No symptoms at this time Will continue to monitor (3) Diabetes: Assessment and plan: Gluc AC & HS with SSI coverage Metformin on hold s/p IV contrast Will resume home regimen on discharge including weekly GLP-1. (4) GERD (gastroesophageal reflux disease): Status: Chronic Assessment and plan: On PPI and H2 at home With fetor, nausea and recent vomiting - will give IV PPI BIB with ongoing oral H2 (5) Hormone replacement therapy (HRT): Status: Acute Assessment and plan: Home dose of daily progesterone in the setting of pre-menopause (6) On deep vein thrombosis (DVT) prophylaxis: Status: Acute Assessment and plan: On LMWH Dicussed with Dr. Hale History of Present Illness History of Present Illness Chief Complaint: dizziness Narrative: This 49 years old female patient with a past medical history of diabetes, migraine, vertigo presented to the ED today for evaluation of dizziness. Lab work was unremarkable and Head/ Neck CTA completed w/o actionable items or significant abnormal findings. [facility] [place] completed by ED provider with recommendation for home discharge and outpatient MRI. The patient had ongoing ambulatory dysfunction linked to her dizziness, was treated with diazepam and was admitted for observation to the hospitalist service. The patient reported difficulty with eye focus while attempting to ambulate with increased dizziness, bilateral arms with a sensation of disassociation w/o focal deficit. When seen the patient was reading on electronic device and eating her meal. Mentioned fetor followed by nausea, vomiting and diarrhea starting but resolving on Thursday, and ongoing minimal abdominal discomfort. The patient denied chills, fevers, chest pain, hematemesis, hematochezia, melena, or dysuria. full code status confirmed. Review of Systems All systems reviewed & are unremarkable except as noted in HPI and below PFSH All Active Problems (Updated 02/18/25 @ 18:19 by Addis Ron APRN) Hormone replacement therapy (HRT) (Acute) GERD (gastroesophageal reflux disease) (Chronic) On deep vein thrombosis (DVT) prophylaxis (Acute) Dizziness (Acute) Abnormal Romberg test (Acute) Migraine (Chronic) Medical History Migraine Diabetes Surgical History History of hernia repair Hx of cholecystectomy H/O section Social History Smoking/Tobacco Use Status: Never Smoking risk assessment performed?: Yes Alcohol Intake: current Alcohol Intake frequency: holidays/special occasions only Drug use: Never Substance use type: does not use Housing: house Do you feel safe at home: Yes Do you feel safe in your relationship?: Yes Meds Allergies and Home Medications Allergies Allergy/AdvReac Type Severity Reaction Status Date / Time sumatriptan (From Imitrex) AdvReac Other (See Verified 02/18/25 12:55 Comment) metals Allergy Itching Uncoded 02/18/25 12:55 onions Allergy Nausea Uncoded 02/18/25 12:55 Home Medications ?Medication ?Instructions ?Recorded ?Confirmed ?Type carboxymethylcellulose sodium 0.5 1 drp ophthalmic (eye) 4-6XD PRN 10/12/18 02/18/25 History % eye drops (Refresh Tears) levothyroxine 75 mcg tablet 100 mcg PO DAILY 10/12/18 02/18/25 History metformin 500 mg tablet 1,000 mg PO BID 10/12/18 02/18/25 History pantoprazole 20 mg tablet,delayed 20 mg PO BID 10/12/18 02/18/25 History release triamcinolone acetonide 0.025 % 1 applic topical BID 10/12/18 02/18/25 History topical cream semaglutide 0.25 mg or 0.5 mg (2 0.5 mg subcut QWEEK 04/16/21 02/18/25 History mg/1.5 mL) subcutaneous pen injector atorvastatin 20 mg tablet 20 mg PO DAILY 01/06/24 02/18/25 History onabotulinumtoxinA 200 unit 10 unit intradermal [id number] 01/06/24 02/18/25 History solution for injection (Botox) verapamil 180 mg 24 hr 180 mg PO DAILY 01/06/24 02/18/25 History capsule,extended release erenumab-aooe 70 mg/mL 140 mg subcut QMONTH 02/18/25 02/18/25 History subcutaneous auto-injector (Aimovig Autoinjector) famotidine 20 mg tablet 20 mg PO DAILY 02/18/25 02/18/25 History magnesium 1 tab PO DAILY 02/18/25 02/18/25 History meclizine 25 mg chewable tablet 25 mg PO DAILY 02/18/25 02/18/25 History (Antivert) progesterone 100 mg PO DAILY 02/18/25 02/18/25 History Exam Narrative Exam Narrative: Constitutional The patient is sitting on stretcher comfortable without acute distress and has average body habitus/is obese/ is thin. HENMT: Head is atraumatic, normocephalic. Facial structures with normal appearance/ symmetrical Eyes: Well aligned, intact ROM Neck: Normal ROM, no meningeal signs Neuro:alert and oriented X4 . No neurological focal deficit, cranial nerve II-XII intact and negative NIHs Chest:Chest is symmetrical and normal appearance Resp: Normal respiratory pattern,unlabored breathing, clear lung bilaterally Cardio: regular rhythm,HR ST 99-100 S1, S2, no murmur GI: Abdomen is not distended, soft and minimal RUQ - epigastric tenderness but negative Schafer's , bowel sounds are present : Negative Costovertebral angle tenderness, no bladder distension Psych: RASS 0, congruent mood and normal affect. Results Labs 02/18/25 13:50 02/18/25 13:50 Labs: Laboratory Results - last 24 hr 02/18/25 02/18/25 02/18/25 13:22 13:50 14:50 WBC 8.07 RBC 4.86 Hgb 13.3 Hct 40.5 MCV 83 MCH 27.4 MCHC 32.8 RDW 13.2 Plt Count 441 H MPV 8.7 Immature Gran % 0.2 Neutrophils % 63.5 Lymphocytes % 24.4 Monocytes % 6.8 Eosinophils % 4.7 Basophils % 0.4 Nucleated RBC % 0.0 Absolute Neutrophils 5.12 Absolute Lymphocytes 1.97 Absolute Monocytes 0.55 Absolute Eosinophils 0.38 Absolute Basophils 0.03 Sodium 140 Potassium 3.8 Chloride 105 Carbon Dioxide 26.9 Anion Gap 8.1 BUN 7 Creatinine 0.8 Est GFR (CKD-EPI 2020) 91.40 Glucose 136 H Calcium 9.5 Troponin I 7 7 Urine Color Yellow Urine Clarity Clear Urine pH 5.5 Ur Specific Hamler 1.010 Urine Protein Negative Urine Ketones Negative Urine Blood Negative Urine Nitrite Negative Urine Bilirubin Negative Urine Urobilinogen 0.2 Ur Leukocyte Esterase Negative Urine Glucose Negative 02/18/25 16:36 WBC RBC Hgb Hct MCV MCH MCHC RDW Plt Count MPV Immature Gran % Neutrophils % Lymphocytes % Monocytes % Eosinophils % Basophils % Nucleated RBC % Absolute Neutrophils Absolute Lymphocytes Absolute Monocytes Absolute Eosinophils Absolute Basophils Sodium Potassium Chloride Carbon Dioxide Anion Gap BUN Creatinine Est GFR (CKD-EPI 2020) Glucose Calcium Troponin I Cancelled Urine Color Urine Clarity Urine pH Ur Specific Hamler Urine Protein Urine Ketones Urine Blood Urine Nitrite Urine Bilirubin Urine Urobilinogen Ur Leukocyte Esterase Urine Glucose Last Vital Signs Temp 36.7 C 02/18/25 12:48 Pulse 87 02/18/25 15:30 Resp 19 02/18/25 15:40 BP 125/67 02/18/25 15:30 Pulse Ox 98 02/18/25 15:40 Time Spent Time spent with Patient: >75 minutes Time was spent: preparing to see the patient(eg.review tests), obtaining and/or reviewing separately otained hiistory, ordering medications,tests, procedures, referring, communicating with other health urgent care physician, indepentently interpreting results, counseling the patient and care coordination
[2025-02-18 16:42] LABS: Magnesium 1.8 mg/dL (1.8-2.4)
[2025-02-18 16:49] LABS: Hemoglobin A1C 6.6 % (<5.7)
--- NOTE | 2025-02-18 17:40 | W.PC.ACHO ---
Registration Status: REG ER Primary Language: Preferred Language: ED Information & Data Chief Complaint Dizzy/Sync 02/18/25 14:01 Triage Note pt c/o dizziness that 02/18/25 12:48 started about 0830 this morning, hx of vertigo, took meds this morning. having hard time walking, and talking. Patient A&O X4. hx of DM2, BGL 138 in triage via pts own glucose monitor. Patient nauseous in triage. Medical / Surgical History (Last Reviewed 05/07/24 @ 13:27 by TODD Rich) Migraine Diabetes (Last Reviewed 05/07/24 @ 13:27 by TODD Rich) History of hernia repair Hx of cholecystectomy H/O section Most Recent Vital Signs Temperature 36.7 C 02/18/25 12:48 Temperature Source Oral 02/18/25 12:48 Pulse 98 H 02/18/25 17:00 Pulse 98 H 02/18/25 17:00 Respiratory Rate 22 02/18/25 17:00 Respiratory Effort Normal 02/18/25 14:29 Blood Pressure 120/61 02/18/25 16:01 Blood Pressure Mean 80 02/18/25 16:01 Blood Pressure Position Sitting 02/18/25 12:48 Pulse Oximetry 96 02/18/25 17:00 Oxygen Delivery Method Room Air 02/18/25 15:06 Oxygen Flow Rate 0 02/18/25 15:06 Pain Level 0 02/18/25 12:48 Allergies sumatriptan (From Imitrex) Adverse Reaction (Verified 02/18/25 12:55) Other (See Comment) metals Allergy (Uncoded 02/18/25 12:55) Itching onions Allergy (Uncoded 02/18/25 12:55) Nausea Precautions Isolation Standard precaution 02/18/25 12:54 Active Medications Generic Name Dose Route Start Last Admin Trade Name Freq PRN Reason Stop Dose Admin Iohexol 100 ml 02/18/25 14:15 02/18/25 14:11 Omnipaque 350 Mg/Ml 100 Ml Btl IJ 03/20/25 23:59 100 ml DIRECTED JESUS Administration Sodium Chloride 0 ml 02/18/25 14:07 02/18/25 15:13 Normal Saline Flush 10 Ml Syr IVP 10 ml PRN PRN Administration Sodium Chloride 50 ml 02/18/25 14:15 02/18/25 14:10 Normal Saline - Diluent 50 Ml Vial IJ 50 ml .FOR DI USE JESUS Administration IV IV Catheter Type [Right Peripheral IV Antecubital] IV Catheter Gauge [Right 18 Antecubital] Diet Orders Category Date Time Status Heart Healthy Eating [DIET] Nutrition 02/18/25 Dinner Active Diagnostics 02/18/25 02/18/25 02/18/25 Range/Units 16:36 14:50 13:50 WBC 8.07 (4.4-10.8) 10^3/uL RBC 4.86 (3.93-5.22) 10^6/uL Hgb 13.3 (11.2-15.7) g/dL Hct 40.5 (36.0-46.0) % MCV 83 (80-95) fL MCH 27.4 (27.0-33.0) pg MCHC 32.8 (32.0-36.0) % RDW 13.2 (11.7-14.6) % Plt Count 441 H (130-400) 10^3/uL MPV 8.7 (8.0-11.0) fL Immature Gran % 0.2 % Neutrophils % 63.5 % Lymphocytes % 24.4 % Monocytes % 6.8 % Eosinophils % 4.7 % Basophils % 0.4 % Nucleated RBC % 0.0 (0.0-0.3) % Absolute Neutrophils 5.12 (1.2-6.7) 10^3/uL Absolute Lymphocytes 1.97 (1.2-3.4) 10^3/uL Absolute Monocytes 0.55 (0.1-0.8) 10^3/uL Absolute Eosinophils 0.38 (0.0-0.7) 10^3/uL Absolute Basophils 0.03 (0.0-0.2) 10^3/uL Sodium 140 (136-145) mmol/L Potassium 3.8 (3.5-5.1) mmol/L Chloride 105 (98-107) mmol/L Carbon Dioxide 26.9 (21.0-32.0) mmol/L Anion Gap 8.1 (3-11) mmol/L BUN 7 (7-18) mg/dL Creatinine 0.8 (0.55-1.02) mg/dL Est GFR (CKD-EPI 2020) 91.40 (mL/min/1.73m2) Glucose 136 H (74-106) mg/dL Hemoglobin A1c 6.6 H (<5.7) % Calcium 9.5 (8.5-10.1) mg/dL Magnesium 1.8 (1.8-2.4) mg/dL Troponin I Cancelled 7 7 (<or=51) ng/L Urine Color (Yellow) Urine Clarity (Clear) Urine pH (5-8) Ur Specific [place] (1.005-1.025) Urine Protein (Neg-Trace) mg/dL Urine Ketones (Negative) mg/dL Urine Blood (Negative) Urine Nitrite (Negative) Urine Bilirubin (Negative) Urine Urobilinogen (Up to 0.2) mg/dL Ur Leukocyte Esterase (Negative) Urine Glucose (Negative) mg/dL 02/18/25 Range/Units 13:22 WBC (4.4-10.8) 10^3/uL RBC (3.93-5.22) 10^6/uL Hgb (11.2-15.7) g/dL Hct (36.0-46.0) % MCV (80-95) fL MCH (27.0-33.0) pg MCHC (32.0-36.0) % RDW (11.7-14.6) % Plt Count (130-400) 10^3/uL MPV (8.0-11.0) fL Immature Gran % % Neutrophils % % Lymphocytes % % Monocytes % % Eosinophils % % Basophils % % Nucleated RBC % (0.0-0.3) % Absolute Neutrophils (1.2-6.7) 10^3/uL Absolute Lymphocytes (1.2-3.4) 10^3/uL Absolute Monocytes (0.1-0.8) 10^3/uL Absolute Eosinophils (0.0-0.7) 10^3/uL Absolute Basophils (0.0-0.2) 10^3/uL Sodium (136-145) mmol/L Potassium (3.5-5.1) mmol/L Chloride (98-107) mmol/L Carbon Dioxide (21.0-32.0) mmol/L Anion Gap (3-11) mmol/L BUN (7-18) mg/dL Creatinine (0.55-1.02) mg/dL Est GFR (CKD-EPI 2020) (mL/min/1.73m2) Glucose (74-106) mg/dL Hemoglobin A1c (<5.7) % Calcium (8.5-10.1) mg/dL Magnesium (1.8-2.4) mg/dL Troponin I (<or=51) ng/L Urine Color Yellow (Yellow) Urine Clarity Clear (Clear) Urine pH 5.5 (5-8) Ur Specific [place] 1.010 (1.005-1.025) Urine Protein Negative (Neg-Trace) mg/dL Urine Ketones Negative (Negative) mg/dL Urine Blood Negative (Negative) Urine Nitrite Negative (Negative) Urine Bilirubin Negative (Negative) Urine Urobilinogen 0.2 (Up to 0.2) mg/dL Ur Leukocyte Esterase Negative (Negative) Urine Glucose Negative (Negative) mg/dL [id number] Documentation POC Urine Test Start: 02/18/25 13:23 Freq: .Urine Test Status: Active Protocol: Activity Type Activity Date Activity User E-sign Co-sign Detail Recorded Client Recorded Date Recorded By Document 02/18/25 13:25 CB [id number] 02/18/25 13:25 CB Intake and Output - 24 Hour Total 02/18/25 12:45 thru 02/18/25 15:00 Intake Total 510 Balance 510 Weight 96.162 kg Intake: IV 510 Falls Risk Assessment History of Falls No History 02/18/25 14:29 Contributing Factors Unstable 02/18/25 14:29 Ambulatory Aids Independent 02/18/25 14:29 Tubes/Lines W/no contributing factors 02/18/25 14:29 Gait Evaluation No gait disturbance 02/18/25 14:29 Cognition No cognitive impairment 02/18/25 14:29 Fall Total Score 13 02/18/25 14:29 Level of Risk Standard/Low Risk 02/18/25 14:29 Problems (Last Reviewed 05/07/24 @ 13:27 by TODD Rich) Dizziness (Acute) Abnormal Romberg test (Acute) v v v v v v v v v Sending and/or Receiving Nurses: Please use comment section below to note any information pertinent to the patient hand-off not included above. Information / Comments: Paged at [phone] and report called for at [phone]. 18 G R AC. Pending MRI per teleneuro. A&O x4, on room air. 500 mL NS bolus given, dose of valium given which caused some loopiness, pt is back at baseline per report. Report received from: Hailee Jiménez ED RN
[2025-02-18] MEDS: Lactated Ringers 1,000 ML 100 ML IV (18:45)
[2025-02-18] MEDS: Pantoprazole 40 MG VIAL IVP (21:01)
[2025-02-19] MEDS: Lactated Ringers 1,000 ML 100 ML IV (04:26)
[2025-02-19 04:56] VITALS: BP 118/74; PULSE 75; RESP 16; TEMP 36.4; O2SAT 98
[2025-02-19] MEDS: Levothyroxine 75 MCG TAB 100 MCG PO (06:08)
[2025-02-19 07:13] LABS: Abs Immature Grans 0.03 10^3/uL (0.0-0.06); HCT 37.3 % (36.0-46.0); HGB 12.6 g/dL (11.2-15.7); Immature Grans % 0.4 %; MCH 28.6 pg (27.0-33.0); MCHC 33.8 % (32.0-36.0); MCV 85 fL (80-95); MPV 9.7 fL (8.0-11.0); Platelet Count 376 10^3/uL (130-400); RBC 4.41 10^6/uL (3.93-5.22); RDW 13.2 % (11.7-14.6); RDW-SD 41.1 fL; WBC 8.24 10^3/uL (4.4-10.8)
[2025-02-19 08:06] VITALS: BP 136/89; PULSE 88; RESP 16; TEMP 36.6; O2SAT 97
--- NOTE | 2025-02-19 08:26 | INITIAL_ITS ---
Date of service: 02/19/25 Time of Service: 08:34 Care Management Initial Assmt Initial Assessment Reason for Hospitalization: Dizziness, vertigo Functional Status/Living Situation Patient Presentation: Ruthie was sitting up in bed and awake. Ruthie presented to the ED for ongoing dizziness. Today, Ruthie is doing better. Ruthie lives in [place] with her daughter, and . Ruthie states she has struggled with Migraines in the past. 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 Ruthie is a and receives some health care services from the [place]. Ruthie is independent at baseline including driving. Ruthie has a TeleNeurology consult, PT evaluation and overlock sewing machine operator consult today. PT recommends outpatient PT for balance retraining, will use cane for balance. CM will continue to follow. 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 [employer] Instrumental Activities of Daily Living (ADLs): Independent Medications Medication Management: No Issues/Barriers identified Physical Functioning/Mobility Assistive Device: none at baseline, will use cane for balance Advance Directives Advance Directives: Do you have an Advance Directive: N , 16:12 AD On File at [facility]: N 10/12/18, 16:12 Date Asked 02/18/25 02/18/25, 13:01 AD Date Reviewed COLST On File at [facility] No 02/27/24, 17:10 COLST Date Scanned Code Status Resuscitation Status Full Code Portal Pt does not currently have a portal and education provided: Yes Insurance Coverage/Financial Issues [place]: [place] - [id number] Care Team Visit Care Team Role Provider Type Melani Houston Primary Care Provider NON-[facility] STAFF PHYSICIAN Sushma Valles RDN, CDCES Other Providers SOFTWARE DEVELOPMENT ADVISOR Mukund Frausto Other Providers OTHER Alpesh Rodgers RDN Other Providers SOFTWARE DEVELOPMENT ADVISOR iWllie Lilly MD Emergency Provider [facility] STAFF PHYSICIAN Willie Hale Admit Provider [facility] STAFF PHYSICIAN Attending Provider Discharge Potential Discharge Needs: Consult Consult Services Needed: Other (TeleNeurology and overlock sewing machine operator ), PT Evaluation and PCP F/U Appt Anticipated Barriers to Discharge: None Identified Patient/Family Education Needs: Review discharge instructions, discuss Ask Me Three Transportation: Private vehicle Plan: Anticipate Ruthie will be discharged home once medically ready with outpatient PT for balance retraining. It is recommenced she follow up with her PCP and continue per her discharge plan of care. She will transport via private vehicle by family. CM will continue to follow. Social Determinants of Health Screening Social Determinants of health last assessed in clinic: 02/19/25 Will the Patient Participate in the Screening?: Yes Do you worry about having a steady place to live?: no Problems where you live: no known problems In the past 12 months, have you had to go without electric, gas, oil or water in your home?: no 1. Within the past 12 months, we worried whether our food would run out before we got money to buy more.: Never true 2. Within the past 12 months, the food we bought just didn't last and we didn't have money to get more.: Never true Has lack of transportation kept you from medical appointments or from doing things needed for daily living?: no Has anyone in your life made you feel unsafe or unsupported?: no How hard is it for you to pay for the very basics like food, housing, medical care, and heating? Would you say it is:: Not hard at all Do you want help finding or keeping work or a job?: I do not need or want help If for any reason you need help with day-to-day activities such as bathing, preparing meals, shopping, managing finances, etc., do you get the help you need?: I don?t need any help How often do you feel lonely or isolated from those around you?: Never Do you speak a language other than Georgian at home?: No Does the patient want assistance with any of the above?: No PFSH All Active Problems (Updated 02/18/25 @ 18:19 by Addis Ron APRN) Hormone replacement therapy (HRT) (Acute) GERD (gastroesophageal reflux disease) (Chronic) On deep vein thrombosis (DVT) prophylaxis (Acute) Dizziness (Acute) Abnormal Romberg test (Acute) Migraine (Chronic) Medical History Migraine Diabetes Surgical History History of hernia repair Hx of cholecystectomy H/O section Social History Smoking/Tobacco Use Status: Never Smoking risk assessment performed?: Yes Alcohol Intake: current Alcohol Intake frequency: holidays/special occasions only Drug use: Never Substance use type: does not use Housing: house Do you feel safe at home: Yes Do you feel safe in your relationship?: Yes Readmission Within the Past 30 Days Yes or No: No
[2025-02-19] MEDS: Enoxaparin 40 MG/0.4 ML SYR SC (09:07)
[2025-02-19] MEDS: Normal Saline Flush 10 ML SYR IVP (09:07)
[2025-02-19] MEDS: Magnesium Oxide 400 MG TAB PO (09:08)
[2025-02-19] MEDS: Verapamil C.R. 180 MG TABCR PO (09:08)
[2025-02-19] MEDS: Atorvastatin 20 MG TAB PO (09:08)
[2025-02-19] MEDS: Pantoprazole 40 MG VIAL IVP (09:08)
[2025-02-19] MEDS: Docusate Sodium 100 MG CAP PO (09:08)
--- NOTE | 2025-02-19 10:27 | IN_ITS ---
PT Notes Visit Reasons: dizziness, vertigo Physical Therapy Inpatient Initial Evaluation Date:02/19/2025 Referring Doctor: Addis Ron NP PT Orders: PT CONSULT: Fall safety assessment. dizziness L>R, Hx of vertigo, Ct head and neck - Precautions: Fall. Standard. Activity as tolerated. Patient Profile/Admitting Diagnosis: Patient is a 49-year-old female on HRT presented to the ED on 02/18/25 with truncal ataxia, ambulatory dysfunction, atypical migraine, and stroke-like symptoms. Head and neck CT was negative. Meclizine was givn to patient at ED which minimally helped with symptoms. Patient was admitted to [facility] level of care for continued observation of migraine, diabetes, further CVA work up. Placed on LMWH. PMHX: All Active Problems (Updated 02/18/25 @ 18:19 by Addis Ron APRN) Hormone replacement therapy (HRT) (Acute) GERD (gastroesophageal reflux disease) (Chronic) On deep vein thrombosis (DVT) prophylaxis (Acute) Dizziness (Acute) Abnormal Romberg test (Acute) Migraine (Chronic) Medical History Migraine Diabetes Surgical History History of hernia repair Hx of cholecystectomy H/O section Social History/Home Situation: Lives with 12-year old daughter in a priavte home with 3 steps to enter. 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 Parents live close by. Shares custody of child with ex-. Equipment Owned/DME: None Subjective: Patient stated that she has been diagosed with migraines a cople of years back. She also has been undergoing multiple levels of stress at work and with her family relationships recently. Is not able to teach this school year. Onset: a day prior to presentation Quality: Off-balanced sensation Duration: since onset yesterday contiuous but now with decreased intesnity Previous Episodes: a year ago Exacerbating Factors: Symptomatic with head turn to L Headache: Yes Neck ache: None Nausea/Vomitting: None Hearing Loss: None Tinnitus: None Fullness in Ear: None Imbalance: Mild with turning Red Flags: Visual changes: feels like she is looking through goggles that is blurry Dysphagia or Dysarthria: None Facial Weakness: None Incoordination: Some LOB noted with walking with incrased tilt to L Previous Treatment: None OBJECTIVE: Posture: Good upright posturing Observation: Cautious and guarded movements, with limited head motions during gait, transfers and bed mobility Mental Status: A and O x 4 Vital Signs: Closely monitored by nursing staff ROM: Cervical ROM: WFL Right Upper Extremity: Shoulder Flexion WFL. Shoulder abduction WFL. Elbow flexion WFL. Wrist flexion WFL. Functional opening and closing of hand WFL. Left Upper Extremity: Shoulder Flexion WFL. Shoulder abduction WFL. Elbow flexion WFL. Wrist flexion WFL. Functional opening and closing of hand WFL. Right Lower Extremity: Hip flexion WFL. Hip abduction WFL. Knee flexion WFL. Ankle dorsiflexion WFL. Ankle plantarflexion WFL. Left Lower Extremity: Hip flexion WFL. Hip abduction WFL. Knee flexion WFL. Ankle dorsiflexion WFL. Ankle plantarflexion WFL. Strength: Cervical strength:WFL Right Upper Extremity: Shoulder flexors 5/5. Shoulder abductors 5/5. Elbow flexors 5/5. Elbow extensors 5/5. Worm Farm Laborer strong. Left Upper Extremity: Shoulder flexors 5/5. Shoulder abductors 5/5. Elbow flexors 5/5. Elbow extensors 5/5. W[employer] Laborer strong. Right Lower Extremity: Hip flexors 5/5. Hip abductors 5/5. Knee flexors 5/5. Knee extensors 5/5. Ankle dorsiflexors 5/5. Ankle plantarflexors 5/5. Left Lower Extremity:Hip flexors 5/5. Hip abductors 5/5. Knee flexors 5/5. Knee extensors 5/5. Ankle dorsiflexors 5/5. Ankle plantarflexors 5/5. Bed Mobility/Transfers: Needed cues for directions only and for weight distribution for stability Rolling supervision Supine to sit supervision Sit to supine supervision Sit to stand stand by assist Stand to sit stand by assit Gait: Covered 300 feet with increased sway/tilt to L x 2 but needing minimal assist from PT for support. Mild path deviation with mild ataxia noted. Special Tests: Rhomberg: LOB to L needing minimal assist from PT for support Coordination: Intact Fine Motor: Intact Visual Tracking: Direction-changing nystagmus with L beating nystagmus with L gaze and R beating nystagmus with R gaze Head Thrust: Negative Valentina-Halpike: No nystagmus appreciated but was lightheaded with L [place]-Hallpike Supine Roll Test: Negative Balance: Static Sitting: Good Dynamic Sitting: Good Static Standing: Fair Dynamic Standing: Fair Special Tests: Mobility Limitations Standardized Measure [facility] AM-PAC 6 clicks Basic Mobility Inpatient Short Form: Raw Score: 18 CMS Score: 47% deficit Informed Consent/Education: Patient instructed in purpose of PT consult and plan of care. Agreeable to proceed with established PT POC to achieve personal goals. Pronator Drift: Negative RombergTest: LOB to L needing support from PT for stability 4-Stage Balance Test: Feet together 10 seonds Semi-tandem 10 seconds Full tandem unable One-legged stance unable 30-second chair rise score: x 8 with x 2 episode of excessive posterior sway needing minimal assist from PT NEURO RE-ED: -Gaze stabilization exercises VOR 1 and VOR x 2 THERA ACT: Facilitated safe performance of level surface ambulation as above with physical assistance provided for stabilization ASSESSMENT: Suspicion of possible cerebellar involvement as evedeced bypositive Romberg and direction-changing nystagmus with migraine headache contributory to symptoms. Symptomatic with head turning to L but at ED was dizzy with head turn to R. No focal neurologic deficits with strength being symmetric in B UE/LE however with incoordination of gait and balance. Patient will require vestibular rehabilitation as an outpateint. MYSQL DBA Addis was updated of this convern. She will also need a single point cane for improved stability with community ambulation. Patient presents with clinical signs and symptoms consistent with current/admitting diagnoses that have resulted to mobility limitations, gait instability, generalized weakness, and overall ADL decline as demonstrated by the following impairment level findings: 1. Impaired sitting/standing balance 2. Impaired activity toleranc 3. Sensation of spinning with positional change Impairments are contributing to the following functional limitations: 1. Increased completion time for mobility ADL performance 2. Increased risk for falls Patient is assessed as a 77471 moderate complexity based on the following: History: 49-year-old male with past medical history as indicated above Examination: Demonstrable impairment above Presentation: Evolving Decision Makin moderate complexity Goals: 1. Patient will be independent with level surface ambulation using single-point cane without excessive sway to L or backward to optimize safety of community ambulation. Plan of Care/Treatment Plan: 1-2x/day for 3 days for vestibular rehabilitation, strengthening, and functional mobility training. DISCHARGE RECOMMENDATIONS: OP PT for vestibular rehabiiitation TREATMENT CODE/TIME: 15471 x 20 minutes for 1 unit, 58851 x 35 minutes for 2 units (10:27-11:22). Thank you for the opportunity to participate in the care of this patient. Jennifer Bernard PT, DPT, CLT [facility] [place], [place]
--- NOTE | 2025-02-19 11:14 | CMDISCH_ITS ---
Date of service: 02/19/25 Time of Service: 11:14 LACE Index Scoring Tool Questions: Length of Stay (in days): 1 Was the patient admitted via the E.D.?: Yes E.D. Visits: 1 Answers: Total Score: 5 Risk of Readmission: Low Risk Care Management Discharge Plan Reason for Hospitalization: Dizziness, vertigo Discharge Plan: Ruthie will be discharged home today with no new services indicated. It is recommenced she follow up with her PCP, have an outpatient MRI and continue per her discharge plan of care. She will transport via private vehicle by family. Patient/Family Education Needs: Review of discharge instructions, activity, jacob itations, and plan of care. Discuss Ask me three.
--- NOTE | 2025-02-19 11:26 | PHA.REVIEW2 ---
Pharmacy Admission Review Admission Clinical Review Admission Pharmacy Review: Hormone replacement therapy (HRT) (Acute) On deep vein thrombosis (DVT) prophylaxis (Acute) Dizziness (Acute) Abnormal Romberg test (Acute) sumatriptan (From Imitrex) Adverse Reaction (Verified 02/18/25 12:55) Other (See Comment) metals Allergy (Uncoded 02/18/25 12:55) Itching onions Allergy (Uncoded 02/18/25 12:55) Nausea Resuscitation Status Full Code Height 5 ft 1.25 in Weight 94.075 kg Pharmacy Admission Review Renal Dosing Renal Dosing: BUN 7 mg/dL (7-18) 02/18/25 13:50 Creatinine 0.8 mg/dL (0.55-1.02) 02/18/25 13:50 Medications needing adjustments: Reviewed (CrCl 91.48 mL/min) List of meds needing interventions: Current medications are okay Anticoagulation Anticoagulation: Hgb 12.6 g/dL (11.2-15.7) 02/19/25 05:58 Hct 37.3 % (36.0-46.0) 02/19/25 05:58 Plt Count 376 10^3/uL (130-400) 02/19/25 05:58 Creatinine 0.8 mg/dL (0.55-1.02) 02/18/25 13:50 DVT Prophylaxis: Reviewed Medications: Enoxaparin (40mg daily) Relevant Labs Relevant Labs: Sodium 140 mmol/L (136-145) 02/18/25 13:50 Potassium 3.8 mmol/L (3.5-5.1) 02/18/25 13:50 Chloride 105 mmol/L (98-107) 02/18/25 13:50 Magnesium 1.8 mg/dL (1.8-2.4) 02/18/25 14:50 Electrolytes, C-Reactive P, ESR: Reviewed DM Control DM Control: Glucose 136 mg/dL (74-106) H 02/18/25 13:50 Hemoglobin A1c 6.6 % (<5.7) H 02/18/25 13:50 Finger Stick Blood Glucose 129 0908 Finger Stick Blood Glucose 129 0805 Finger Stick Blood Glucose 129 0805 DM Control: Reviewed Insulin Dosing, Diabetic Medication: Has order for SS insulin Cardiac Review Cardiac Review: Troponin I Cancelled 02/18/25 16:36 BP, HR, EF%: Reviewed (HR and BP WNL) List meds needing interventions: Has order for verapamil SR 180mg daily QTc Review QTc: Reviewed (429 from 02/18/25) IV to PO Switch IV Medications: Reviewed (pantoprazole and prochlorperazine) Home Meds Home Med List reviewed: Intervened Relevent Home Meds Not ordered & why?: metformin (on hold her H+P), Aimovig (monthly), Botox (every 3 months) and Ozempic (weekly) Changed progesterone to patients own order. Medication was brought down to pharmacy, verified and sent back up to floor. Changed timing from daily to qPM per patient request Current Meds Current Medication Order Review: Intervened Comments: Changed famotidine from daily to daily PRN per patient request. Updated on home med list to PRN Discontinued duplicate meclizine order
--- NOTE | 2025-02-19 11:46 | W.PM.DS.N ---
Date of service: 02/19/25 Time of Service: 16:11 DS: Diagnosis Discharge Diagnosis (1) Dizziness: Status: Acute (2) Migraine: Status: Chronic (3) Diabetes: (4) GERD (gastroesophageal reflux disease): Status: Chronic (5) Hormone replacement therapy (HRT): Status: Acute (6) On deep vein thrombosis (DVT) prophylaxis: Status: Acute Discharge Plan Disposition Patient Disposition: Home Condition: Improving Discharge Details Reason For Visit: dizziness, vertigo Admit Date/Time: 02/18/25 16:21 Admit Provider: Willie Hale Attending Provider: Willie Hale [facility] Hospital Course: This 49 years old female patient with a past medical history of diabetes, migraine, vertigo presented to the ED today for evaluation of dizziness. Lab work was unremarkable and Head/ Neck CTA completed w/o actionable items or significant abnormal findings[place] [facility] [place] by ED provider with recommendations for home discharge and outpatient MRI. Emesis and diarrhea reported 2 days prior to presentation.The patient had ongoing ambulatory dysfunction linked to her dizziness, was treated with diazepam and was admitted for observation to the medical surgical floor by the hospitalist team. The patient ambulated with physical therapy with a cane provided for support, tolerating enteral intake. The patient is hemodynamically stable and will be discharge home with a new order for PRN meclizine in addition to her home scheduled daily dose. Patient made aware not to drive until has been cleared by [facility]. Outpatient MRI order completed. Please follow-up with your PCP within 7 days of discharge please. Discussed with Dr. Chavez Home Meds and New Rx's Prescriptions: New meclizine 12.5 mg Tablet 12.5 mg PO TID PRN PRNQty: 30 0RF ondansetron 4 mg tablet,disintegrating 4 mg PO Q8H PRNQty: 30 0RF Continued verapamil 180 mg capsule,ext rel. pellets 24 hr 180 mg PO DAILY atorvastatin 20 mg tablet 20 mg PO DAILY Botox 200 unit recon soln 10 unit intradermal [id number] magnesium 1 tab PO DAILY Aimovig Autoinjector 70 mg/mL auto-injector 140 mg subcut QMONTH famotidine 20 mg tablet 20 mg PO DAILY PRN meclizine [Antivert] 25 mg tablet,chewable 25 mg PO DAILY progesterone 100 mg PO DAILY metformin 500 mg Tablet 1,000 mg PO BID pantoprazole 20 mg Tablet,Delayed Release (Dr/Ec) 20 mg PO BID levothyroxine 75 mcg Tablet 100 mcg PO DAILY triamcinolone acetonide 0.025 % Cream 1 applic TOPICAL BID carboxymethylcellulose sodium [Refresh Tears] 0.5 % Drops 1 drp OPHTHALMIC (EYE) 4-6XD PRN semaglutide 0.25 mg or 0.5 mg(2 mg/1.5 mL) Pen Injector 0.5 mg SUBCUT QWEEK Discharge Instructions Referrals: Melani Houston [Primary Care Provider, Medicine] Referral Note: Follow-up with PCP within 7 days of discharge please Activity:: Activity as Tolerated Equipment/Supplies:: Cane Diet:: As Tolerated Discharge Orders Other Ambulatory Orders: MR brain wo (Routine) Timeframe: [id number] Facility: [facility] - Location: DIAGNOSTIC IMAGING Ordered By: Addis Ron DS: Summary Time Spent with Patient providing and/or coordinating discharge services: Greater than 30 minutes Status at Discharge Functional status at discharge: independent ambulation Overall status at discharge: patient is progressing back to baseline Mental Status: mental status grossly normal Speech and Movement: speech and movement normal Mood: congruent mood Affect: normal affect Exam Narrative Exam Narrative: Constitutional The patient is sitting on stretcher comfortable without acute distress and has average body habitus/is obese/ is thin. HENMT: Head is atraumatic, normocephalic. Facial structures with normal appearance/ symmetrical Eyes: Well aligned, intact ROM Neck: Normal ROM, no meningeal signs Neuro:alert and oriented X4 . No neurological focal deficit, cranial nerve II-XII intact Chest:Chest is symmetrical and normal appearance Resp: Normal respiratory pattern,unlabored breathing, clear lung bilaterally Cardio: regular rhythm,HR ST 99-100 S1, S2, no murmur GI: Abdomen is not distended, soft non-tender, bowel sounds are present : Negative Costovertebral angle tenderness Psych: RASS 0, congruent mood and normal affect. Psych Mental Status: mental status grossly normal Speech and Movement: speech and movement normal Mood: congruent mood Affect: normal affect DS: Data Vitals/I&O Vitals and I&O: Vital Signs Temperature 36.6 C 02/19/25 08:06 Temperature Source Temporal Artery Scan 02/19/25 08:06 Pulse 88 02/19/25 08:06 Pulse Rhythm Regular 02/18/25 17:57 Pulse 98 H 02/18/25 17:00 Respiratory Rate 16 02/19/25 08:06 Respiratory Effort Normal, Non-Labored 02/18/25 17:57 Respiratory Depth Normal 02/18/25 17:57 Respiratory Pattern Normal 02/18/25 17:57 Blood Pressure 136/89 02/19/25 08:06 Blood Pressure Mean 104 02/19/25 08:06 Blood Pressure Position Sitting 02/18/25 12:48 Pulse Oximetry 97 02/19/25 08:06 Oxygen Delivery Method Room Air 02/19/25 08:06 Oxygen Flow Rate 0 02/19/25 08:06 Pain Level 0 02/19/25 04:56 Comment See orthostatic VS documentation. 02/18/25 17:57 Intake & Output 02/18/25 02/18/25 02/19/25 11:59 23:59 11:59 Intake Total 520 / 520 1010 / 1010 Output Total 550 / 550 Balance 520 / 520 460 / 460 Weight 94.075 kg Intake: IV 520 / 520 1010 / 1010 Output: Urine 550 / 550 Other: Urine Color Yellow Urine Appearance Clear Clear Comment Pt voided independently to toilet, not measured. Pt reports independently voiding into toilet; not measured. Data Completed and Pending Labs on day of discharge: Labs from last 24 hours 02/19/25 02/18/25 02/18/25 05:58 16:36 14:50 WBC 8.24 RBC 4.41 Hgb 12.6 Hct 37.3 MCV 85 MCH 28.6 MCHC 33.8 RDW 13.2 Plt Count 376 MPV 9.7 Immature Gran % 0.4 Neutrophils % 61.6 Lymphocytes % 25.6 Monocytes % 7.0 Eosinophils % 4.9 Basophils % 0.5 Nucleated RBC % 0.0 Absolute Neutrophils 5.08 Absolute Lymphocytes 2.11 Absolute Monocytes 0.58 Absolute Eosinophils 0.40 Absolute Basophils 0.04 Sodium Potassium Chloride Carbon Dioxide Anion Gap BUN Creatinine Est GFR (CKD-EPI 2020) Glucose Hemoglobin A1c Calcium Magnesium 1.8 Troponin I Cancelled 7 Urine Color Urine Clarity Urine pH Ur Specific Hagan Urine Protein Urine Ketones Urine Blood Urine Nitrite Urine Bilirubin Urine Urobilinogen Ur Leukocyte Esterase Urine Glucose 02/18/25 02/18/25 13:50 13:22 WBC 8.07 RBC 4.86 Hgb 13.3 Hct 40.5 MCV 83 MCH 27.4 MCHC 32.8 RDW 13.2 Plt Count 441 H MPV 8.7 Immature Gran % 0.2 Neutrophils % 63.5 Lymphocytes % 24.4 Monocytes % 6.8 Eosinophils % 4.7 Basophils % 0.4 Nucleated RBC % 0.0 Absolute Neutrophils 5.12 Absolute Lymphocytes 1.97 Absolute Monocytes 0.55 Absolute Eosinophils 0.38 Absolute Basophils 0.03 Sodium 140 Potassium 3.8 Chloride 105 Carbon Dioxide 26.9 Anion Gap 8.1 BUN 7 Creatinine 0.8 Est GFR (CKD-EPI 2020) 91.40 Glucose 136 H Hemoglobin A1c 6.6 H Calcium 9.5 Magnesium Troponin I 7 Urine Color Yellow Urine Clarity Clear Urine pH 5.5 Ur Specific Hagan 1.010 Urine Protein Negative Urine Ketones Negative Urine Blood Negative Urine Nitrite Negative Urine Bilirubin Negative Urine Urobilinogen 0.2 Ur Leukocyte Esterase Negative Urine Glucose Negative PFSH All Active Problems (Updated 02/18/25 @ 18:19 by Addis Ron APRN) Hormone replacement therapy (HRT) (Acute) GERD (gastroesophageal reflux disease) (Chronic) On deep vein thrombosis (DVT) prophylaxis (Acute) Dizziness (Acute) Abnormal Romberg test (Acute) Migraine (Chronic) Medical History Migraine Diabetes Surgical History History of hernia repair Hx of cholecystectomy H/O section Social History Smoking/Tobacco Use Status: Never Smoking risk assessment performed?: Yes Alcohol Intake: current Alcohol Intake frequency: holidays/special occasions only Drug use: Never Substance use type: does not use Housing: house Do you feel safe at home: Yes Do you feel safe in your relationship?: Yes Time Spent with Patient Time Spent with Patient: >85 minutes Time was spent: preparing to see the patient(eg.review tests), obtaining and/or reviewing separately otained hiistory, ordering medications,tests, procedures, referring, communicating with other health animal care supervisor, indepentently interpreting results, counseling the patient and care coordination
== END 2025-02-19 18:11 | disposition home or self-care (01) ==
LOC: ER 16:00 → MS 17:41
PROVIDERS: Admitting Provider Family Medicine; Emergency Provider Emergency Medicine; PCP Internal Medicine; Responsible Provider Nurse Practitioner Acute Care; Visit Provider Family Medicine
DX: R42 Dizziness and giddiness (principal); E11.9 Type 2 diabetes mellitus without complications; G43.909 Migraine, unspecified, not intractable, without status migrainosus; K21.9 Gastro-esophageal reflux disease without esophagitis; Z79.890 Hormone replacement therapy; Z79.899 Other long term (current) drug therapy; R00.0 Tachycardia, unspecified; R29.2 Abnormal reflex; R26.2 Difficulty in walking, not elsewhere classified
CPT/HCPCS: 00123; 36415; 70496; 70498; 80048; 81025; 93005; 96361; 96374; 97162; 97530; 99285; J1650; 71046; 81003; 83036; 83735; 84484; 85025; 93010; 99223; 99239; G0378; J1815; J2470; J3360; J3490

== ENCOUNTER 2025-02-21 11:58 | Emergency (ER) | payer OTHER, SELFPAY ==
[2025-02-21 12:01] VITALS: BP 117/78; PULSE 91; RESP 16; TEMP 36.6; O2SAT 95
--- NOTE | 2025-02-21 12:15 | DI.CT_ITS ---
Exam(s) CT ABDOMEN PELVIS W EXAM: CT ABDOMEN PELVIS W CLINICAL HISTORY: Epigastric pain, n/v/d. TECHNIQUE: Imaging Protocol: Axial computed tomography images with coronal and sagittal reformatted images were created and reviewed CONTRAST MATERIAL: Intravenous: Omnipaque 350 Contrast volume:100 ml Oral: no COMPARISON: No exams were available for comparison FINDINGS: ABDOMEN and PELVIS: Lung Bases: No acute findings. Liver: Hepatic steatosis. No suspicious mass. Gallbladder and biliary tract: Cholecystectomy.. No biliary dilation. Pancreas: Normal density. No abnormal calcifications or inflammatory process. No evidence of mass. Spleen: Normal. Kidneys: Normal size, contour and axis. No radiodense stones. No obstructive uropathy. No suspicious masses seen. Adrenal glands: No masses seen. Vasculature: Abdominal aorta non-dilated. Soft tissues: Unremarkable. Bladder: No gross wall thickening. No calculi.No focal mass. Bowel: No obstruction. No bowel wall thickening. No evidence of appendicitis. Mild diverticulosis. No evidence of diverticulitis. Peritoneal cavity: No ascites. No focal collection. No mesenteric inflammatory response. No free air. Bones: Unremarkable for age. Reproductive organs: retroflexed uterus with IUD in place. Lymph nodes: No pathologically enlarged lymph nodes. IMPRESSION:: No acute abnormality in the abdomen or pelvis. RADIATION DOSE DELIVERED: 720.09mGy.cm Total DLP DATA REPOSITORY: All CT scans at this facility are submitted to the National Radiology Data Registry (NRDR) Dose Index Registry (DIR) with the [employer] (A[employer]). RADIATION OPTIMIZATION: All CT scans at this facility use at least one of these dose optimization techniques: automated exposure control; mA and/or kV adjustment per patient size (includes targeted exams where dose is matched to clinical indication); or iterative reconstruction.
--- NOTE | 2025-02-21 12:31 | W.ED.GENAD ---
Discharge Plan Disposition Patient Disposition: Home Condition: Stable Discharge Details Clinical Impression: Pancreatitis, Nausea vomiting and diarrhea Primary Care Provider: Melani Houston ED Provider: Carla Blood Home Meds and New Rx's Prescriptions: No Action verapamil 180 mg capsule,ext rel. pellets 24 hr 180 mg PO DAILY atorvastatin 20 mg tablet 20 mg PO DAILY Botox 200 unit recon soln 10 unit intradermal [id number] magnesium 1 tab PO DAILY Aimovig Autoinjector 70 mg/mL auto-injector 140 mg subcut QMONTH famotidine 20 mg tablet 20 mg PO DAILY PRN meclizine [Antivert] 25 mg tablet,chewable 25 mg PO DAILY progesterone 100 mg PO DAILY meclizine 12.5 mg Tablet 12.5 mg PO TID PRN PRNQty: 30 0RF ondansetron 4 mg tablet,disintegrating 4 mg PO Q8H PRNQty: 30 0RF metformin 500 mg Tablet 1,000 mg PO BID pantoprazole 20 mg Tablet,Delayed Release (Dr/Ec) 20 mg PO BID levothyroxine 75 mcg Tablet 100 mcg PO DAILY triamcinolone acetonide 0.025 % Cream 1 applic TOPICAL BID carboxymethylcellulose sodium [Refresh Tears] 0.5 % Drops 1 drp OPHTHALMIC (EYE) 4-6XD PRN semaglutide 0.25 mg or 0.5 mg(2 mg/1.5 mL) Pen Injector 0.5 mg SUBCUT QWEEK Discharge Instructions Instructions: Pancreatitis (DC) Additional Instructions: You were seen in the emergency department today for evaluation of epigastric abdominal pain with nausea, vomiting, and diarrhea. In our department a full physical examination performed, had a CT scan that was normal, but did have an elevation in your pancreas levels slightly above are normal, concerning for mild pancreatitis. As we discussed, the burnett to treating pancreatitis is to maintain excellent hydration, and follow a clear liquid diet until your symptoms start to improve. After that you can gradually reintroduce bland and gentle foods. You need to follow-up with your GI doctor as endoscopy would be the next step in diagnosing other conditions that may be contributing to some of your more chronic symptoms. Please use therapeutic dosing of Tylenol (acetaminophen) & Advil (ibuprofen) in an alternating fashion as follows: Take 1000mg of Tylenol every 6 hours without missing doses- that is 4 times per day. Half-Way in between the Tylenol doses, take 600mg of Advil also on a 6 hour schedule, that is also 4 times per day. With this strategy, you will be taking something for fever/pain as often as every 3 hours. The daily maximum dosing of Tylenol is 4000mg, and the daily maximum dosing of Advil is 2400mg. Please note that some common cold medications & prescription pain medications may contain acetaminophen and you need to read OTC drug labels and factor that in to maximum daily doses. Please follow-up with your primary care provider in the next few days to discuss this visit and any symptoms that change, worsen, or persist. Thank you for allowing us to be part of your care. Discharge Data Discharge Date/Time-TO BE ENTERED AT DEPARTURE: 02/21/25 15:38 HPI General Mode of arrival: ambulatory. Date/Time Provider Initiated Documentation: 02/21/25 12:08. Limitations to Documentation: no limitations. Information obtained by: patient and old records reviewed. HPI Narrative: This is a 49-year-old female patient with a past medical history significant for GERD and a recent admission for vertigo, nausea and vomiting, presenting for evaluation of nausea with vomiting and diarrhea as well as epigastric abdominal pain. The patient reports that she was feeling much stronger this morning, has been doing gentle tasks around the house, maintaining her hydration. She had a sudden episode of vomiting that was not preceded by extended nausea, as well as nonbloody diarrhea. She is experiencing pain in her epigastric abdomen region, does have a history of cholecystectomy. She reports that she was feeling ongoing dizziness since her discharge, has not yet picked up her meclizine or Zofran from the pharmacy. She reports that her burps tastes like poop. The patient denies headache or vision changes, chest pain, new numbness, weakness, or other neurodeficits. Related Data Home Medications ?Medication ?Instructions ?Recorded ?Confirmed carboxymethylcellulose sodium 0.5 1 drp ophthalmic (eye) 4-6XD PRN 10/12/18 02/21/25 % eye drops (Refresh Tears) levothyroxine 75 mcg tablet 100 mcg PO DAILY 10/12/18 02/21/25 metformin 500 mg tablet 1,000 mg PO BID 10/12/18 02/21/25 pantoprazole 20 mg tablet,delayed 20 mg PO BID 10/12/18 02/21/25 release triamcinolone acetonide 0.025 % 1 applic topical BID 10/12/18 02/21/25 topical cream semaglutide 0.25 mg or 0.5 mg (2 0.5 mg subcut QWEEK 04/16/21 02/21/25 mg/1.5 mL) subcutaneous pen injector atorvastatin 20 mg tablet 20 mg PO DAILY 01/06/24 02/21/25 onabotulinumtoxinA 200 unit 10 unit intradermal [id number] 01/06/24 02/21/25 solution for injection (Botox) verapamil 180 mg 24 hr 180 mg PO DAILY 01/06/24 02/21/25 capsule,extended release erenumab-aooe 70 mg/mL 140 mg subcut QMONTH 02/18/25 02/21/25 subcutaneous auto-injector (Aimovig Autoinjector) famotidine 20 mg tablet 20 mg PO DAILY PRN 02/18/25 02/21/25 magnesium 1 tab PO DAILY 02/18/25 02/21/25 meclizine 25 mg chewable tablet 25 mg PO DAILY 02/18/25 02/21/25 (Antivert) progesterone 100 mg PO DAILY 02/18/25 02/21/25 meclizine 12.5 mg tablet 12.5 mg PO TID PRN PRN #30 tabs 02/19/25 02/21/25 ondansetron 4 mg disintegrating 4 mg PO Q8H PRN #30 tabs 02/19/25 02/21/25 tablet Previous Rx's ?Medication ?Instructions ?Recorded meclizine 12.5 mg tablet 12.5 mg PO TID PRN PRN #30 tabs 02/19/25 ondansetron 4 mg disintegrating 4 mg PO Q8H PRN #30 tabs 02/19/25 tablet Allergies Allergy/AdvReac Type Severity Reaction Status Date / Time sumatriptan (From Imitrex) AdvReac Other (See Verified 02/21/25 12:06 Comment) metals Allergy Itching Uncoded 02/21/25 12:06 onions Allergy Nausea Uncoded 02/21/25 12:06 General Stated Complaint: Nausea/Vomit/Diar ARCADIO: 3 Exam Narrative Exam Narrative: Gen: Awake and alert, in no apparent distress HEENT: Non-icteric sclera, PERRL Neck: Supple Lungs: No apparent respiratory distress, normal respiratory effort. CV: Appears well perfused, heart with regular rate and rhythm, strong distal pulses Abdomen: Non-distended, soft, tender to palpation in the epigastric region without rigidity, rebound, or guarding MSK: Moves 4 extremities without apparent limitation in ROM Skin: Visualized skin without rashes, cyanosis. Neuro: No focal motor or sensory deficits, no facial asymmetry. Speaks in full, clear sentences. Psych: Appropriate for situation. Course Vital Signs Vital signs: Vital Signs Temperature 36.6 C 02/21/25 12:01 Pulse 91 H 02/21/25 12:01 Respiratory Rate 16 02/21/25 12:01 Blood Pressure 117/78 02/21/25 12:01 Pulse Oximetry 95 02/21/25 12:01 Temperature 36.6 C 02/21/25 12:01 Pulse 91 H 02/21/25 12:01 Respiratory Rate 16 02/21/25 12:01 Blood Pressure 117/78 02/21/25 12:01 Pulse Oximetry 95 02/21/25 12:01 Oxygen Delivery Method Room Air 02/21/25 12:01 Oxygen Flow Rate 0 02/21/25 12:01 Medical Decision Making This is a 49-year-old female patient presenting for evaluation of nausea with vomiting and diarrhea as well as abdominal pain. My differential includes, but is not limited to, gastritis/PUD, gastroenteritis, pancreatitis, hepatitis, appendicitis, diverticulitis, small bowel obstruction. Considered urinary pathology including UTI, nephrolithiasis. Considered mesenteric ischemia, aortic pathology, though this is less concerning based on the patient's history and physical exam. The patient has had robust neuroimaging and has no new neurodeficits to increase my concern for intracranial hemorrhage, mass effect, stroke, or other intracranial abnormalities. We will provide the patient with Tylenol and Zofran, obtain labs to include CBC, CMP, magnesium, troponin, lipase, urinalysis, and obtain a CT scan of the abdomen and pelvis. - I reviewed the patient's laboratory studies, which do show mild leukocytosis to 14, no anemia or thrombocytopenia. Chemistry panel without electrolyte derangement, evidence of kidney injury, no significant liver dysfunction appreciated. Troponin was negative, but the lipase is elevated to just under 3 times the upper limit of normal, concerning for pancreatitis. Given the location of pain in the epigastric region this is a reasonable concern, though the patient is already status postcholecystectomy and does not consume alcohol. Urinalysis noninfectious. CT scan performed and shows no abnormalities which might explain the patient's symptoms. She reports some improvement in her pain with Tylenol and Toradol, and was able to tolerate oral intake after Zofran. She does have Zofran at the pharmacy already. We discussed pancreatitis management, including good hydration, clear liquid diet, and the patient is desiring to trial a course of outpatient management which I think is quite reasonable given her hemodynamic stability and ability to tolerate p.o. She has a referral to GI at the [facility] already and will follow-up on that visit. At this time, the patient has had a full medical evaluation and is safe for discharge to home. They are hemodynamically stable, ambulatory, and tolerating PO. They are understanding of the follow-up plan and return precautions. They left our facility without incident. Carla Blood MD [facility] All Active Problems (Updated 02/21/25 @ 15:31 by Carla Blood MD) Nausea vomiting and diarrhea (Acute) Pancreatitis (Chronic) Hormone replacement therapy (HRT) (Acute) GERD (gastroesophageal reflux disease) (Chronic) Abnormal Romberg test (Acute) Medical History Migraine Diabetes Surgical History History of hernia repair Hx of cholecystectomy H/O section Social History Smoking/Tobacco Use Status: Never Smoking risk assessment performed?: Yes Alcohol Intake: current Alcohol Intake frequency: holidays/special occasions only Drug use: Never Substance use type: does not use Housing: house Do you feel safe at home: Yes Do you feel safe in your relationship?: Yes
[2025-02-21 12:33] VITALS: BP 117/78; PULSE 91; RESP 16; TEMP 36.6; O2SAT 95
[2025-02-21 12:38] LABS: Abs Immature Grans 0.06 10^3/uL (0.0-0.06); HCT 42.5 % (36.0-46.0); HGB 14.1 g/dL (11.2-15.7); Immature Grans % 0.4 %; MCH 27.6 pg (27.0-33.0); MCHC 33.2 % (32.0-36.0); MCV 83 fL (80-95); MPV 9.2 fL (8.0-11.0); Platelet Count 471 10^3/uL (130-400); RBC 5.10 10^6/uL (3.93-5.22); RDW 13.2 % (11.7-14.6); RDW-SD 40.2 fL; WBC 13.99 10^3/uL (4.4-10.8)
[2025-02-21] MEDS: ACETAMINOPHEN 1,000 MG/100 ML BAG 400 MG IVPB (13:17)
[2025-02-21] MEDS: Ondansetron 4 MG/2 ML VIAL IVP (13:17)
[2025-02-21] MEDS: Normal Saline Flush 10 ML SYR IVP (13:25)
[2025-02-21] MEDS: Normal Saline - Diluent 50 ML VIAL IJ (13:25)
[2025-02-21] MEDS: Omnipaque 350 MG/ML 100 ML BTL IJ (13:25)
[2025-02-21 13:26] LABS: Glucose Negative (Negative)
[2025-02-21 13:30] LABS: ALT 35 U/L (14-59); AST 45 U/L (15-37); Albumin 4.1 g/dL (3.4-5.0); Alkaline Phosphatase 139 U/L (46-116); Anion Gap 11.1 mmol/L (3-11); BUN 8 mg/dL (7-18); Bilirubin, Total 0.4 mg/dL (0.2-1.0); CO2 23.9 mmol/L (21.0-32.0); Calcium 9.9 mg/dL (8.5-10.1); Chloride 101 mmol/L (98-107); Estimated GFR 107.28 (mL/min/1.73m2); Glucose 112 mg/dL (74-106); Lipase 195 U/L (<78); Magnesium 2.0 mg/dL (1.8-2.4); Potassium 4.5 mmol/L (3.5-5.1); Sodium 136 mmol/L (136-145); Total Protein 9.0 g/dL (6.4-8.2); Troponin I 8 ng/L (<or=51)
[2025-02-21 14:05] VITALS: BP 98/63; PULSE 91; RESP 18; O2SAT 98
[2025-02-21 14:16] LABS: Troponin I 9 ng/L (<or=51)
[2025-02-21] MEDS: Ketorolac 15 MG/ML VIAL IVP (14:47)
== END 2025-02-21 15:38 | disposition home or self-care (01) ==
PROVIDERS: Emergency Provider Emergency Medicine; PCP Internal Medicine
DX: K85.90 Acute pancreatitis without necrosis or infection, unspecified (principal); R11.2 Nausea with vomiting, unspecified; R19.7 Diarrhea, unspecified
CPT/HCPCS: 99285; 99283; 96375; 80053; 83690; 74177; 81003; 83735; 84484; 85025; J0131; J1885; J2405; J3490

== ENCOUNTER 2025-04-06 05:29 | Outpatient (CLI) | payer OTHER, SELFPAY ==
[2025-04-06] MEDS: Gadoterate meglumine 20 ML VIAL IVP (08:19)
--- NOTE | 2025-04-06 08:30 | DI.MRI_ITS ---
Exam(s) MR BRAIN WO/W EXAM: MR BRAIN WO/W CLINICAL HISTORY: [id number] Dizziness and giddiness, sudden onset dizziness. TECHNIQUE: Multiplanar multisequence MRI of the brain was performed. CONTRAST MATERIAL: IV Contrast: 20 ML of Dotarem contrast administered. COMPARISON: MR MR BRAIN WO from 01/22/[address] BRAIN NECK CTA from 02/18/2025 FINDINGS: VENTRICLES AND EXTRA AXIAL SPACES: Normal in size and morphology for the patient's age. HEMORRHAGE: None. CEREBRAL PARENCHYMA: No focus of restricted diffusion to suggest acute infarct. No space-occupying lesion identified. No significant normal high signal lesions in the white matter. BRAINSTEM/CEREBELLUM: Normal. CALVARIUM: Normal. ENHANCEMENT: No suspicious enhancement identified. VISUALIZED PARANASAL SINUSES/MASTOIDS: Clear. Orbits: Unremarkable. Pituitary: Not enlarged. Partially empty sella. Vasculature: Normal flow voids. IMPRESSION: Unremarkable MRI of the brain. DATA REPOSITORY:
== END 2025-04-06 05:49 ==
PROVIDERS: PCP Internal Medicine; Visit Provider Nurse Practitioner Adult Health
DX: Z12.31 Encounter for screening mammogram for malignant neoplasm of breast (principal)
CPT/HCPCS: 70553